=== PATIENT | male | born 1950 ===

== ENCOUNTER → 2020-07-11 08:30 | Outpatient (BNVA) | payer MEDICARE, SELFPAY | PROVIDERS: PCP Internal Medicine; Referring Provider Internal Medicine; Visit Provider Nurse Practitioner | DX: R19.7 Diarrhea, unspecified (principal); R10.84 Generalized abdominal pain; R10.9 Unspecified abdominal pain; K82.4 Cholesterolosis of gallbladder; E13.9 Other specified diabetes mellitus without complications | CPT/HCPCS: 99212 ==

== ENCOUNTER → 2020-08-03 14:15 | Outpatient (BNVA) | payer MEDICARE, SELFPAY | PROVIDERS: PCP Internal Medicine; Visit Provider Urology | DX: N40.1 Benign prostatic hyperplasia with lower urinary tract symptoms (principal); R35.0 Frequency of micturition; Z79.899 Other long term (current) drug therapy | CPT/HCPCS: Q3014 ==

== ENCOUNTER 2020-08-23 08:50 | Outpatient (REF) | payer MEDICARE, SELFPAY ==
[2020-08-23 11:41] LABS: Anion Gap 15 (12-20); Blood Urea Nitrogen 17 mg/dL (9-16); C Reactive Protein 0.09 mg/dL (< or = 0.50); Calcium 9.2 mg/dL (8.4-10.2); Carbon Dioxide 27 mmol/L (22-29); Chloride 105 mmol/L (96-108); Estimated Glomerular Filt Rate > 60; Glucose Random 129 mg/dL (60-115); Potassium 3.7 mmol/l (3.3-5.1); Sodium 143 mmol/L (135-145)
[2020-08-23 11:45] LABS: Estimated Average Glucose 154 mg/dL
[2020-08-23 12:06] LABS: Prostate Specific Antigen 2.79 ng/mL (<0.05-4.0)
[2020-08-23 12:08] LABS: Creatinine Urine 197.78 mg/dL; Microalbum/Creatinine Ratio Ur 12.6 ug/mg cr
[2020-08-24 08:47] LABS: LDL Cholesterol Direct 66 mg/dL (<100)
[2020-08-29 12:15] LABS: CDIFF Ag Negative (Negative); CDIFF Internal ctrl Dots and bkg OK (V); CDiff Toxin Negative (Negative)
== END 2020-08-23 08:51 | disposition home or self-care (01) ==
LOC: HO.HMGCLDS 08:50
PROVIDERS: PCP Internal Medicine; Visit Provider Nurse Practitioner
DX: R10.9 Unspecified abdominal pain (principal); R19.7 Diarrhea, unspecified; K82.4 Cholesterolosis of gallbladder; E78.9 Disorder of lipoprotein metabolism, unspecified; E13.9 Other specified diabetes mellitus without complications; N40.0 Benign prostatic hyperplasia without lower urinary tract symptoms; M54.14 Radiculopathy, thoracic region; I10 Essential (primary) hypertension
CPT/HCPCS: 80048; 82043; 83036; 83721; 84153; 86140; 87045; 87046; 87324; 87449

== ENCOUNTER 2020-12-14 11:21 | Outpatient (REF) | payer MEDICARE, SELFPAY ==
[2020-12-14 13:56] LABS: Hematocrit 47.3 % (42-52); Hemoglobin 15.6 g/dl (14.0-18.0)
[2020-12-14 14:04] LABS: Estimated Average Glucose 177 mg/dL; Hemoglobin A1c % 7.8 %
[2020-12-14 14:48] LABS: Alanine Aminotransferase 66 U/L (0-40); Albumin Level 4.6 g/dL (3.5-5.0); Alkaline Phosphatase 118 U/L (39-117); Anion Gap 15 (12-20); Aspartate Amino Transferase 35 U/L (5-37); Bilirubin Total 0.5 mg/dL (0.0-1.0); Blood Urea Nitrogen 21 mg/dL (9-16); Calcium 9.5 mg/dL (8.4-10.2); Carbon Dioxide 26 mmol/L (22-29); Chloride 102 mmol/L (96-108); Estimated Glomerular Filt Rate > 60; Glucose Random 162 mg/dL (60-115); Potassium 3.9 mmol/L (3.3-5.1); Sodium 139 mmol/L (135-145); Total Protein 7.1 g/dL (6.5-8.0)
[2020-12-15 06:16] LABS: LDL Cholesterol Direct 84 mg/dL (<100)
== END 2020-12-14 11:22 | disposition home or self-care (01) ==
LOC: HO.HMGCLDS 11:21
PROVIDERS: PCP Internal Medicine; Visit Provider Internal Medicine
DX: E78.9 Disorder of lipoprotein metabolism, unspecified (principal); E13.9 Other specified diabetes mellitus without complications; F41.1 Generalized anxiety disorder; I10 Essential (primary) hypertension; E66.9 Obesity, unspecified
CPT/HCPCS: 36415; 80053; 82043; 83036; 83721; 85014; 85018

== ENCOUNTER → 2021-02-14 13:12 | Outpatient (BNVA) | payer MEDICARE, SELFPAY | PROVIDERS: Referring Provider Internal Medicine; Visit Provider Nurse Practitioner | DX: R10.84 Generalized abdominal pain (principal); K80.20 Calculus of gallbladder without cholecystitis without obstruction; K58.9 Irritable bowel syndrome, unspecified; E78.00 Pure hypercholesterolemia, unspecified | CPT/HCPCS: 99212 ==

== ENCOUNTER → 2021-04-11 06:15 | Outpatient (REF) | payer MEDICARE, OTHER, SELFPAY ==
--- NOTE | ~2021-04-11 | NM_ITS ---
EXAMINATION: OR HEPATOBILIARY SCAN WITH ENSURE CLINICAL INFORMATION: Generalized abdominal pain. History of gallstones, abdominal pain and diarrhea. COMPARISON: None TECHNIQUE: Following intravenous administration of 5 mCi of 99m technetium mebrofenin, imaging over the right upper quadrant was obtained up to 60 minutes. At 60 minutes, oral Ensure was administered, and further imaging was obtained up to 60 minutes. FINDINGS: There is normal hepatic uptake without any focal defects. The gallbladder is visualized by 10 minutes, and small bowel is visualized by 52 minutes. Post oral administration of Ensure, the gallbladder ejection fraction at 20 minutes is 33% and at 60 minutes is 60%. It is abnormal. OR/OR hepatobiliary wo pharm IMPRESSION: Patent cystic duct. Patent CBD. Normal hepatic uptake. Abnormal gallbladder ejection fraction 59% at 60 minutes.
== END ==
LOC: HO.NUCMED 06:15
PROVIDERS: PCP Internal Medicine; Visit Provider Nurse Practitioner
DX: R10.84 Generalized abdominal pain (principal); K80.20 Calculus of gallbladder without cholecystitis without obstruction
CPT/HCPCS: 78226; A9537

== ENCOUNTER → 2021-04-16 08:28 | Outpatient (BNVA) | payer MEDICARE, OTHER, SELFPAY | PROVIDERS: PCP Internal Medicine; Visit Provider Nurse Practitioner | DX: K58.0 Irritable bowel syndrome with diarrhea (principal); K82.8 Other specified diseases of gallbladder; M54.14 Radiculopathy, thoracic region | CPT/HCPCS: 99212 ==

== ENCOUNTER → 2021-06-06 08:44 | Outpatient (BNVA) | payer MEDICARE, OTHER, SELFPAY | PROVIDERS: PCP Internal Medicine; Visit Provider Nurse Practitioner | CPT/HCPCS: Q3014 ==

== ENCOUNTER → 2021-07-09 09:02 | Outpatient (BNVA) | payer MEDICARE, OTHER, SELFPAY | PROVIDERS: PCP Internal Medicine; Visit Provider Nurse Practitioner | DX: K82.8 Other specified diseases of gallbladder (principal); K58.0 Irritable bowel syndrome with diarrhea; R19.7 Diarrhea, unspecified | CPT/HCPCS: Q3014 ==

== ENCOUNTER 2021-07-31 07:40 | Outpatient (REF) | payer MEDICARE, SELFPAY ==
[2021-07-31 12:11] LABS: Prostate Specific Antigen 3.19 ng/mL (<0.05-4.0)
== END 2021-07-31 07:41 | disposition home or self-care (01) ==
LOC: HO.HMGCLDS 07:40
PROVIDERS: PCP Internal Medicine; Visit Provider Urology
DX: Z12.5 Encounter for screening for malignant neoplasm of prostate (principal); R35.0 Frequency of micturition
CPT/HCPCS: 36415; 84153

== ENCOUNTER → 2021-08-07 13:10 | Outpatient (BNVA) | payer MEDICARE, SELFPAY | PROVIDERS: PCP Internal Medicine; Referring Provider Internal Medicine; Visit Provider Urology | DX: Z13.89 Encounter for screening for other disorder (principal) | CPT/HCPCS: Q3014 ==

== ENCOUNTER 2021-12-24 09:33 | Outpatient (REF) | payer MEDICARE, SELFPAY ==
[2021-12-24 11:27] LABS: MANUAL DIFF FLAG NO
[2021-12-24 11:38] LABS: Basophils Percent Auto 0.5 % (0-2); Eosinophils Absolute Auto 0.1 X10*3/uL (0.0-0.4); Eosinophils Percent Auto 1.7 % (0-4); Hematocrit 46.2 % (42.0-52.0); Hemoglobin 15.2 g/dl (14.0-18.0); Imm Gran Abs Auto 0.06 X10*3/uL (0.00-0.03); Lymphocytes Absolute Auto 1.7 X10*3/uL (1.2-4.9); Lymphocytes Percent Auto 29.6 % (20-40); Mean Corpuscular HGB Conc 32.9 g/dl (31.0-36.0); Mean Corpuscular Hemoglobin 29.3 pg (27.0-33.0); Mean Corpuscular Volume 89.2 fL (80.0-98.0); Monocytes Absolute Auto 0.5 X10*3/uL (0.1-1.2); Monocytes Percent Auto 8.9 % (2-11); Neutrophils Absolute Auto 3.4 x10*3/uL (2.0-8.3); Neutrophils Percent Auto 58.3 % (45-73); Platelet Count 154 X10*3/uL (160-400); Red Blood Count 5.18 X10*6/uL (4.60-5.80); Red Cell Distribution Width 13.1 % (11.0-16.0); White Blood Count 5.8 X10*3/uL (4.8-10.8)
[2021-12-24 11:43] LABS: Estimated Average Glucose 189 mg/dL; Hemoglobin A1c % 8.2 %
[2021-12-24 12:09] LABS: Alanine Aminotransferase 65 U/L (0-40); Albumin Level 4.3 g/dL (3.5-5.0); Alkaline Phosphatase 85 U/L (39-117); Anion Gap 14 (12-20); Aspartate Amino Transferase 53 U/L (5-37); Blood Urea Nitrogen 14 mg/dL (9-16); Calcium 9.4 mg/dL (8.4-10.2); Carbon Dioxide 26 mmol/L (22-29); Chloride 106 mmol/L (96-108); Cholesterol 165 mg/dL; Estimated Glomerular Filt Rate > 60; Glucose Fasting 164 mg/dL (60-99); HDL Cholesterol 40 mg/dL; LDL Cholesterol Calculated 80 mg/dl; Potassium 3.8 mmol/L (3.3-5.1); Sodium 142 mmol/L (135-145); Total Protein 6.8 g/dL (6.5-8.0); Triglycerides 226 mg/dL
[2021-12-24 12:26] LABS: Microalbum/Creatinine Ratio Ur 7.9 ug/mg cr
== END 2021-12-24 09:34 | disposition home or self-care (01) ==
LOC: HO.HMGCLDS 09:33
PROVIDERS: Visit Provider Internal Medicine
DX: E78.9 Disorder of lipoprotein metabolism, unspecified (principal); F41.1 Generalized anxiety disorder; I10 Essential (primary) hypertension; N40.0 Benign prostatic hyperplasia without lower urinary tract symptoms; E66.09 Other obesity due to excess calories; K58.0 Irritable bowel syndrome with diarrhea; E13.9 Other specified diabetes mellitus without complications
CPT/HCPCS: 36415; 80053; 80061; 82043; 83036; 85025

== ENCOUNTER 2022-07-02 13:01 | Outpatient (REF) | payer MEDICARE, SELFPAY ==
--- NOTE | ~2022-07-02 | XR_ITS ---
EXAMINATION: XR KNEE, RIGHT CLINICAL INFORMATION: Right knee pain COMPARISON: None TECHNIQUE: Four views of the right knee. FINDINGS: There is a right knee effusion. No acute fracture or dislocation is evident. There is degenerative change of the patellofemoral joint with prominent spurring. There is moderate narrowing of the lateral joint space compartment of the right knee. There is evidence of previous old medial collateral ligament injury with calcification about the medial femoral condyle. Nondestructive sclerotic region is seen within the proximal tibia likely representing bone island. XR/XR knee RT 4V IMPRESSION: 1. Right knee effusion. 2. Patellofemoral joint degenerative change. 3. Moderate narrowing of the lateral joint space compartment of the right knee
[2022-07-02 13:51] LABS: MANUAL DIFF FLAG NO
[2022-07-02 13:56] LABS: Basophils Percent Auto 0.4 % (0-2); Eosinophils Absolute Auto 0.1 X10*3/uL (0.0-0.4); Hematocrit 44.9 % (42.0-52.0); Hemoglobin 14.9 g/dl (14.0-18.0); Imm Gran Abs Auto 0.03 X10*3/uL (0.00-0.03); Imm Gran Pct Auto 0.6 % (0.0-0.4); Lymphocytes Absolute Auto 1.5 X10*3/uL (1.2-4.9); Lymphocytes Percent Auto 31.1 % (20-40); Mean Corpuscular HGB Conc 33.2 g/dl (31.0-36.0); Mean Corpuscular Hemoglobin 29.2 pg (27.0-33.0); Mean Platelet Volume 12.8 fL (9.4-12.4); Monocytes Absolute Auto 0.4 X10*3/uL (0.1-1.2); Monocytes Percent Auto 7.3 % (2-11); Neutrophils Absolute Auto 2.9 x10*3/uL (2.0-8.3); Neutrophils Percent Auto 59.6 % (45-73); Platelet Count 148 X10*3/uL (160-400); Red Cell Distribution Width 13.2 % (11.0-16.0); White Blood Count 4.8 X10*3/uL (4.8-10.8)
[2022-07-02 14:07] LABS: Alanine Aminotransferase 45 U/L (0-40); Albumin Level 4.3 g/dL (3.5-5.0); Alkaline Phosphatase 84 U/L (39-117); Anion Gap 15 (12-20); Aspartate Amino Transferase 36 U/L (5-37); Bilirubin Total 1.2 mg/dL (0.0-1.0); Blood Urea Nitrogen 15 mg/dL (9-16); Calcium 9.6 mg/dL (8.4-10.2); Carbon Dioxide 27 mmol/L (22-29); Chloride 104 mmol/L (96-108); Estimated Glomerular Filt Rate > 60; Glucose Random 204 mg/dL (60-115); Potassium 3.9 mmol/L (3.3-5.1); Sodium 142 mmol/L (135-145); Total Protein 6.8 g/dL (6.5-8.0)
[2022-07-02 14:30] LABS: TSH reflex Free T4 1.55 uIU/mL (0.32-4.0)
== END 2022-07-02 13:02 | disposition home or self-care (01) ==
LOC: HO.HMGCLDS 13:01
PROVIDERS: PCP Internal Medicine; Visit Provider Internal Medicine
DX: Z01.818 Encounter for other preprocedural examination (principal); E13.9 Other specified diabetes mellitus without complications; I10 Essential (primary) hypertension; E66.09 Other obesity due to excess calories; E78.9 Disorder of lipoprotein metabolism, unspecified; H26.9 Unspecified cataract
CPT/HCPCS: 36415; 73564; 80053; 84443; 85025

== ENCOUNTER 2023-06-02 07:52 | Outpatient (REF) | payer BC, SELFPAY ==
[2023-06-02 11:35] LABS: MANUAL DIFF FLAG NO
[2023-06-02 11:48] LABS: Basophils Percent Auto 0.3 % (0-2); Eosinophils Absolute Auto 0.1 X10*3/uL (0.0-0.4); Eosinophils Percent Auto 1.9 % (0-4); Hematocrit 48.3 % (42.0-52.0); Hemoglobin 15.7 g/dl (14.0-18.0); Imm Gran Abs Auto 0.04 X10*3/uL (0.00-0.03); Imm Gran Pct Auto 0.7 % (0.0-0.4); Lymphocytes Absolute Auto 2.1 X10*3/uL (1.2-4.9); Lymphocytes Percent Auto 35.6 % (20-40); Mean Corpuscular HGB Conc 32.5 g/dl (31.0-36.0); Mean Corpuscular Hemoglobin 29.4 pg (27.0-33.0); Mean Corpuscular Volume 90.4 fL (80.0-98.0); Mean Platelet Volume 12.8 fL (9.4-12.4); Monocytes Absolute Auto 0.5 X10*3/uL (0.1-1.2); Monocytes Percent Auto 8.3 % (2-11); Neutrophils Absolute Auto 3.1 x10*3/uL (2.0-8.3); Neutrophils Percent Auto 53.2 % (45-73); Platelet Count 157 X10*3/uL (160-400); Red Blood Count 5.34 X10*6/uL (4.60-5.80); Red Cell Distribution Width 13.6 % (11.0-16.0); White Blood Count 5.8 X10*3/uL (4.8-10.8)
[2023-06-02 12:11] LABS: Estimated Average Glucose 151 mg/dL; Hemoglobin A1c % 6.9 % (<6.0)
[2023-06-02 12:26] LABS: Alanine Aminotransferase 33 U/L (0-40); Albumin Level 4.3 g/dL (3.5-5.0); Alkaline Phosphatase 86 U/L (39-117); Anion Gap 12 (12-20); Aspartate Amino Transferase 23 U/L (5-37); Blood Urea Nitrogen 16 mg/dL (9-16); Calcium 9.5 mg/dL (8.4-10.2); Carbon Dioxide 26 mmol/L (22-29); Chloride 107 mmol/L (96-108); Estimated Glomerular Filt Rate > 60; Glucose Fasting 151 mg/dL (60-99); Potassium 3.7 mmol/L (3.3-5.1); Sodium 141 mmol/L (135-145); Total Protein 6.9 g/dL (6.5-8.0)
[2023-06-02 13:03] LABS: Creatinine Urine 347.89 mg/dL; Microalbum/Creatinine Ratio Ur 5.1 ug/mg cr (<30)
[2023-06-02 16:28] LABS: Prostate Specific Antigen 2.48 ng/mL (<0.05-4.0); Vitamin B12 596 pg/mL (200-900)
[2023-06-06 15:03] LABS: Vitamin D 25-OH, D2 <4 ng/mL; Vitamin D 25-OH, D3 13 ng/mL; Vitamin D 25-OH, Total 13 ng/mL (30-100)
== END 2023-06-02 07:53 | disposition home or self-care (01) ==
LOC: HO.HMGCLDS 07:52
PROVIDERS: PCP Internal Medicine; Visit Provider Internal Medicine
DX: Z00.01 Encounter for general adult medical examination with abnormal findings (principal); Z12.5 Encounter for screening for malignant neoplasm of prostate; M19.90 Unspecified osteoarthritis, unspecified site; E66.09 Other obesity due to excess calories; E78.9 Disorder of lipoprotein metabolism, unspecified; N40.0 Benign prostatic hyperplasia without lower urinary tract symptoms; E13.9 Other specified diabetes mellitus without complications; F41.9 Anxiety disorder, unspecified
CPT/HCPCS: 36415; 80053; 82043; 82306; 82570; 82607; 83036; 84153; 84443; 85025

== ENCOUNTER 2023-06-12 13:08 | Outpatient (AMB) | payer BC, SELFPAY ==
--- NOTE | 2023-06-12 13:10 | MHC.PC.OV ---
Vital Signs 06/12/23 13:13 Height 5 ft 2 in Weight 200 lb BMI 36.6 BP 120/80 Blood Pressure Location Rt brachial Position Sitting Pulse 52 Pulse Source Pulse Oximeter Pulse Oximetry (%) 97 Oxygen Delivery Method Room Air Intake Visit Reasons: 3 month Follow up Allergies oxycodone Adverse Reaction (Verified 03/13/23 14:44) panic attack Medication List - Last Reconciled 06/12/23 by Emily Yoder MD aspirin (Adult Low Dose Aspirin) 81 mg PO DAILY 90 days atenolol 25 mg PO DAILY 90 days atorvastatin 10 mg PO DAILY blood sugar diagnostic ([employer] Ultra Test strips) test blood sugars twice a day blood-glucose meter ([employer] Ultra2 Meter) As directed to test blood sugar cholecalciferol (vitamin D3) 25 mcg PO DAILY 90 days clotrimazole-betamethasone 1-0.05 % 1 appl topical BID 30 days diclofenac sodium 75 mg PO ONCE 30 days finasteride 5 mg PO DAILY 90 days glipizide 10 mg (2 x 5 mg) PO BID 90 days lancets ([employer]ZER[employer]uch Delica Plus Lancet) test blood sugars twice a day magnesium citrate 100 mg PO DAILY pioglitazone 45 mg PO DAILY 90 days silodosin 8 mg PO DAILY tamsulosin 0.4 mg PO DAILY Tobacco use date assessed: 03/13/23 HPI 3 month Follow up HPI Details Patient is 73-year-old gentleman came in today for his regular follow-up appointment Continued to feel anxiety he has tried buspirone but felt drowsy so stopped taking it. I prescribed Lexapro for him but he did not take it, patient says that he only feel anxiety when he look at needles Patient has appointment for colonoscopy consultation coming up next month. Blood pressure is well controlled , he is on atenolol 25 mg patient is tolerating medication no side effects Diabetes mellitus continue glipizide 10 mg b.i.d. pioglitazone 45 mg daily hemoglobin A1c is well controlled now at 6.9 He had eye exam and that showed no diabetic complications He is taking atorvastatin 10 mg for lipid control And tamsulosin and finasteride for BPH through urology BMI is elevated need to lose weight Vitamin-D level came back at 13, I have sent supplement for him he is to start taking that daily Thrombocytopenia: Mild and stable Follow-up [facility] Medical History Hyperlipidemia Diabetes mellitus, type II BPH (benign prostatic hyperplasia) HTN (hypertension) Dyslipidemia Bladder outlet obstruction Dribbling following urination Nocturia Rash Lipid disorder Benign prostatic hyperplasia Diabetes 1.5, managed as type 2 Anxiety, generalized Surgical History History of colonoscopy Family History Father History of cancer Mother History of cancer Social History Housing: House Alcohol intake: current Alcohol intake frequency: holidays/special occasions only Patient Tobacco Use Status: Former Tobacco user Quit Date: 2010 Tobacco use type: Cigarette e-Cigarette/Vaping Use: Never Used service: No Current occupational status: retired Cognitive needs: No Hearing needs: No Vision needs: No Questionnaire Thrive Questionnaire Date Thrive assessed: 11/04/22 JOSIE-7 AMB Questionnaire JOSIE-7 Date JOSIE - 7 assessed: 11/04/22 Source: Developed by Drs. Tien Simons, Marycruz Morales, Moustapha Tony and colleagues, with an educational tye from [employer]. Review of Systems Const Denies chills and Denies fever(s) ENT Denies epistaxis and Denies nasal discharge Card Denies chest pain Resp Denies chest congestion, Denies cough and Denies hemoptysis GI Denies diarrhea and Denies nausea Skin/Breast Denies rash Neuro Reports no additional complaints Psych Reports no additional complaints Endo Reports no additional complaints Physical exam (Primary Care) Vital Signs: Last Vital Signs Pulse 52 06/12/23 13:13 BP 120/80 06/12/23 13:13 Pulse Ox 97 06/12/23 13:13 Oxygen Delivery Method Room Air 06/12/23 13:13 Tobacco/Smoking Status: Tobacco use Status Tobacco use date assessed 03/13/23 06/12/23 13:10 Patient Tobacco Use Status Former Tobacco user 06/12/23 13:10 Tobacco use type Cigarette 06/12/23 13:10 e-Cigarette/Vaping Use Never Used 06/12/23 13:10 Thrive Assessment: Date of Thrive Assessment Date Thrive assessed 11/04/22 06/12/23 13:10 Const General: cooperative, comfortable and no acute distress Orientation/consciousness: patient oriented x3 HENMT Head: Yes normocephalic Eyes General: appearance normal, both eyes and all related structures Neck Neck: Yes supple Resp Effort & Inspection: normal respiratory effort, no cough and no stridor Cardio Rhythm: regular rhythm Heart sounds: S1 normal heart sound present and S2 normal heart sound present Skin General skin exam: turgor normal Neuro General: patient oriented x3, tone normal and moves all extremities Extrem Right lower extremity: no edema Left lower extremity: no edema Assessment and Plan Assessment & Plan (1) Diabetes 1.5, managed as type 2: Code(s): E13.9 - Other specified diabetes mellitus without complications (2) Benign prostatic hyperplasia: Code(s): N40.0 - Benign prostatic hyperplasia without lower urinary tract symptoms Qualifiers: Lower urinary tract symptom presence: symptoms present Lower urinary tract symptom detail: urinary frequency Qualified Code(s): N40.1 - Benign prostatic hyperplasia with lower urinary tract symptoms; R35.0 - Frequency of micturition (3) Lipid disorder: Code(s): E78.9 - Disorder of lipoprotein metabolism, unspecified (4) Obesity due to excess calories: Code(s): E66.09 - Other obesity due to excess calories Qualifiers: Obesity classification: adult class 2 (BMI 35 - 39.9) Serious obesity comorbidity presence: with serious comorbidity Body mass index: BMI 36.0-36.9 Qualified Code(s): E66.01 - Morbid (severe) obesity due to excess calories; Z68.36 - Body mass index [BMI] 36.0-36.9, adult (5) Anxiety disorder: Code(s): F41.9 - Anxiety disorder, unspecified Qualifiers: Anxiety disorder type: phobia Phobia type: fear of injections Qualified Code(s): F40.231 - Fear of injections and transfusions (6) Arthrosis: Code(s): M19.90 - Unspecified osteoarthritis, unspecified site (7) HTN (hypertension), benign: Code(s): I10 - Essential (primary) hypertension (8) Anxiety, generalized: Code(s): F41.1 - Generalized anxiety disorder (9) Thrombocytopenia: Code(s): D69.6 - Thrombocytopenia, unspecified (10) Thoracic radiculitis: Code(s): M54.14 - Radiculopathy, thoracic region Plan Patient is 73-year-old gentleman came in today for his regular follow-up appointment Continued to feel anxiety he has tried buspirone but felt drowsy so stopped taking it. I prescribed Lexapro for him but he did not take it, patient says that he only feel anxiety when he look at needles Patient has appointment for colonoscopy consultation coming up next month. Blood pressure is well controlled , he is on atenolol 25 mg patient is tolerating medication no side effects Diabetes mellitus continue glipizide 10 mg b.i.d. pioglitazone 45 mg daily hemoglobin A1c is well controlled now at 6.9 He had eye exam and that showed no diabetic complications He is taking atorvastatin 10 mg for lipid control And tamsulosin and finasteride for BPH through urology Joint pains are stable patient is taking Tylenol as needed BMI is elevated need to lose weight Vitamin-D level came back at 13, I have sent supplement for him he is to start taking that daily Thrombocytopenia: Mild and stable Continued to have pain mid back radiating to right side to worse abdomen. Off and on. Follow-up August Medications: New cholecalciferol (vitamin D3) 25 mcg PO DAILY 90 days 90 caps 3RF Coding Level of Care Code Est Pt Level 4 (21223) Diagnoses Diabetes 1.5, managed as type 2 E13.9 Benign prostatic hyperplasia with urinary frequency N40.1; R35.0 Lower urinary tract symptom presence: symptoms present Lower urinary tract symptom detail: urinary frequency Lipid disorder E78.9 Class 2 severe obesity due to excess calories with serious comorbidity and body mass index (BMI) of 36.0 to 36.9 in adult E66.01; Z68.36 Obesity classification: adult class 2 (BMI 35 - 39.9) Serious obesity comorbidity presence: with serious comorbidity Body mass index: BMI 36.0-36.9 Fear of injections F40.231 Anxiety disorder type: phobia Phobia type: fear of injections Arthrosis M19.90 HTN (hypertension), benign I10 Anxiety, generalized F41.1 Thrombocytopenia D69.6 Thoracic radiculitis M54.14
[2023-06-12 13:13] VITALS: BP 120/80; PULSE 52; O2SAT 97; BMI 36.6
== END 2023-06-12 16:01 | disposition home or self-care (01) ==
PROVIDERS: PCP Internal Medicine; Visit Provider Internal Medicine
DX: E13.9 Other specified diabetes mellitus without complications (principal); E66.01 Morbid (severe) obesity due to excess calories; D69.6 Thrombocytopenia, unspecified; Z68.36 Body mass index [BMI] 36.0-36.9, adult; N40.1 Benign prostatic hyperplasia with lower urinary tract symptoms; R35.0 Frequency of micturition; E78.9 Disorder of lipoprotein metabolism, unspecified; F40.231 Fear of injections and transfusions; M19.90 Unspecified osteoarthritis, unspecified site; I10 Essential (primary) hypertension; F41.1 Generalized anxiety disorder; M54.14 Radiculopathy, thoracic region
CPT/HCPCS: 99214

== ENCOUNTER 2023-09-01 11:05 | Outpatient (AMB) | payer BC, SELFPAY ==
--- NOTE | 2023-09-01 11:19 | A.OFFVIS_ITS ---
Intake Vital Signs 09/01/23 11:20 Height 5 ft 2 in Weight 202 lb 6.15 oz BMI 37.0 BP 130/70 Blood Pressure Location Rt brachial Position Sitting Pulse 52 Intake Visit Reasons: follow up Biliary dyskinesia Intake Note: Patient presents to in office visit today in follow up of biliary dyskinesia and for colonoscopy screening. CC: Patient c/o RUQ abdominal pain with radiation to his back, pain scale 10/10 when he has it. Patient reports last colonoscopy was done in 2015 in [place] and polyps were removed at that time. Patient would like to discuss when he will have a new colonoscopy done. Patient reports constantly having diarrhea and constipation but mostly diarrhea. He also reports having nausea sometimes and heartburn. Sorority Mother Required: Yes Sorority Mother Name: Accompanied by: Allergies oxycodone Adverse Reaction (Verified 09/01/23 11:25) panic attack HPI follow up Biliary dyskinesia HPI Details Assessment & Plan (1) Irritable bowel syndrome with diarrh ea: ?Code(s): K58.0 - Irritable bowel syndrome with diarrhea ?Plan: [place] # [id number], Sara He never received the zenpep, he says he called to inform me but I never received the message. I think this may be a PA problem, so I will have my staff work on this. [employer] is difficult with their formulary at times. He continues on the sucralfate 2 tabs bid and still has diarrhea at times but not as much. He is only taking the dicylcomine bid because there are so many pills. We may need to consider an IBS-D medication to simplify his pill burden at the next visit. ROV 4 weeks. (2) Biliary dyskinesia: ?Code(s): K82.8 - Other specified diseases of gallbladder (3) Diarrhea: ?Code(s): R19.7 - Diarrhea, unspecified TODAY'S VISIT [place] #Rosy Live This patient has been lost to follow-up since 2020 He is here with his who is supportive He says he was not notified about his appts and that is why he has not showed up for his appts. He has RUQ pain that is worse when he moves and then I will have to freeze. He has trouble finding a position of comfort in the bed. It is worse with twisting and bending. The pain is not effected by eating in general or with fatty foods specifically - although he generally avoids fatty foods. The pain has been worsening over the past year. He has had some new medicines, pioglitizone and glipizide, finasteride and flomax. His BM's are mostly diarrhea and he will have bad burning in rectum; he does have hemorrhoids. No blood. We used to treat the diarrhea with sucralfate but he has not had this for a year. We will restart this. It is difficult to say whether this has something to do with his gallbladder or whether this is simply cramping from his now poorly controlled irritable bowel syndrome. It also seems like there may be a significant musculoskeletal overlap. On examination he seems to have significant levoscoliosis so the possibility of thoracic radiculopathy is strongly in the differential diagnosis. I explained all of this to the patient and with this he is agreeable to getting some x-rays of his back and neck, a repeat ultrasound and repeat HIDA scan. He will also restart his sucralfate and will see how much this controls the pain. He also tells me that his last colonoscopy was in 2016 or 2017 at that time a polyp was found. This was done a different facility so I do not have the report. He says that his primary care was supposed to refer him for repeat colonoscopy but then he retired. I will get him going with this. He denies any cardiac or respiratory problems. There are no prior problems with anesthesia or sedation. There are no infectious disease problems. Return office visit in 8 weeks and of course after the colonoscopy. [facility] Medical History Hyperlipidemia Diabetes mellitus, type II BPH (benign prostatic hyperplasia) HTN (hypertension) Dyslipidemia Bladder outlet obstruction Dribbling following urination Nocturia Rash Lipid disorder Benign prostatic hyperplasia Diabetes 1.5, managed as type 2 Anxiety, generalized Surgical History History of colonoscopy Family History Father History of cancer Mother History of cancer Social History Housing: House Alcohol intake: current Alcohol intake frequency: holidays/special occasions only Patient Tobacco Use Status: Former Tobacco user Quit Date: 2010 Tobacco use type: Cigarette e-Cigarette/Vaping Use: Never Used service: No Current occupational status: retired Cognitive needs: No Hearing needs: No Vision needs: No Review of Systems Const Denies fatigue, Denies fever(s), Denies night sweats, Denies poor appetite and Denies weight loss ENT Reports Normal hearing present, Denies dental pain, Denies dysphagia, Denies hearing loss, Denies mouth pain, Reports neck pain, Denies odynophagia, Denies throat swelling, Denies tongue swelling and Reports other (Dentition adequate) Card Reports no additional complaints Resp Reports no additional complaints GI Reports abdominal pain, Denies melena, Denies bloating, Denies hematochezia, Denies constipation, Reports GI cramping, Denies dysphagia, Denies excessive flatus, Denies early satiety, Reports heartburn, Reports diarrhea, Denies nausea, Denies odynophagia, Denies vomiting and Denies hematemesis Musc Reports abnormal gait, Reports back pain, Reports myalgias, Reports arthralgias, Reports neck pain and Reports stiffness Skin/Breast Denies pruritus, Denies lesions, Denies rash and Denies jaundice Neuro Reports Normal hearing present, Denies Abnormal speech present and Reports abnormal gait Psych Details: He is severely needle phobic Reports anxiety Endo Denies fatigue Aller/Immun Denies throat swelling and Denies tongue swelling Physical Exam Vital Signs: Last Vital Signs Pulse 52 09/01/23 11:20 BP 130/70 09/01/23 11:20 BMI result Body Mass Index 37.0 Const General: cooperative, no acute distress, well developed and well groomed Nutritional Appearance: well nourished and obese centrally obese Orientation/consciousness: oriented to person, oriented to place and oriented to time Limitations: language barrier HEENT Head: Yes normocephalic and Yes atraumatic Eyes General: appearance normal, both eyes and all related structures Pupils: Equal, round and reactive pupils present Neck Neck: Yes normal visual inspection and Yes no lymphadenopathy Thyroid: Thyroid normal Resp Effort & Inspection: normal respiratory effort and able to speak in complete sentences Auscultation: clear to auscultation bilaterally Cardio Rate: regular rate Rhythm: regular rhythm Heart sounds: Normal, physiologic split S2 sound present Peripheral pulses: radial pulses present and posterior tibial pulses present GI Inspection: No distended, No Abdominal panniculus present and Yes obesity Palpation (GI): Soft to palpation, Tenderness to palpation present (GI) in the RUQ and periumbilically, no guarding, not rigid and No hepatosplenomegaly present Percussion: Yes normal to percussion Auscultation: normal bowel sounds Rectal Exam - Male: Yes deferred General: Yes CVA tenderness Back/Spine/Pelvis Back: CVA tenderness Thoracic/Lumbar Spine: straight leg raise negative bilaterally, pain with thoraco-lumbar ROM, paraspinal muscle tenderness, Thoracic/lumbar scoliosis (levo), thoracic spinal tenderness and other (increased hamstring tone - extreme) Skin General skin exam: no rashes or lesions noted, turgor normal, skin not dry, no jaundice, No spider nevi and no striae Rashes: no rashes Nails: normal Neuro General: oriented to person, oriented to place and oriented to time Cranial nerves: Yes Equal, round and reactive pupils present and Yes Normal hearing present Speech: No Abnormal speech present Extrem General: Yes normal to inspection, No clubbing, No cyanosis and No edema Psych Appearance: grossly normal and well kempt Mental Status: mental status grossly normal Speech and movement: Normal speech and movement present Affect: Anxious affect present Attitude: cooperative Thought process: not confabulating and Impoverished thought process present Thought content: Normal thought content present Insight: Limited insight present (Psych) Judgement: Limited judgement present (Psych) Assessment & Plan Assessment & Plan (1) Irritable bowel syndrome with diarrhea: Code(s): K58.0 - Irritable bowel syndrome with diarrhea (2) Biliary dyskinesia: Code(s): K82.8 - Other specified diseases of gallbladder (3) Flank pain: Code(s): R10.9 - Unspecified abdominal pain (4) Back pain: Code(s): M54.9 - Dorsalgia, unspecified (5) Tubular adenoma of colon: Code(s): D12.6 - Benign neoplasm of colon, unspecified (6) Pre-op evaluation: Code(s): Z01.818 - Encounter for other preprocedural examination Plan [place] #Rosy Michel This patient has been lost to follow-up since 2020 He is here with his who is supportive He says he was not notified about his appts and that is why he has not showed up for his appts. He has RUQ pain that is worse when he moves and then I will have to freeze. He has trouble finding a position of comfort in the bed. It is worse with twisting and bending. The pain is not effected by eating in general or with fatty foods specifically - although he generally avoids fatty foods. The pain has been worsening over the past year. He has had some new medicines, pioglitizone and glipizide, finasteride and flomax. His BM's are mostly diarrhea and he will have bad burning in rectum; he does have hemorrhoids. No blood. We used to treat the diarrhea with sucralfate but he has not had this for a year. We will restart this. It is difficult to say whether this has something to do with his gallbladder or whether this is simply cramping from his now poorly controlled irritable bowel syndrome. It also seems like there may be a significant musculoskeletal overlap. On examination he seems to have significant levoscoliosis so the possibility of thoracic radiculopathy is strongly in the differential diagnosis. I explained all of this to the patient and with this he is agreeable to getting some x-rays of his back and neck, a repeat ultrasound and repeat HIDA scan. He will also restart his sucralfate and will see how much this controls the pain. He also tells me that his last colonoscopy was in 2016 or 2017 at that time a polyp was found. This was done a different facility so I do not have the report. He says that his primary care was supposed to refer him for repeat colonoscopy but then he retired. I will get him going with this. He denies any cardiac or respiratory problems. There are no prior problems with anesthesia or sedation. There are no infectious disease problems. Return office visit in 8 weeks and of course after the colonoscopy. Orders: Orders US abdomen complete Today K58.0 - Irritable bowel syndrome with diarrhea, K82.8 - Other specified diseases of gallbladder, M54.9 - Dorsalgia, unspecified, R10.9 - Unspecified abdominal pain XR thoracic spine 2V Today K58.0 - Irritable bowel syndrome with diarrhea, K82.8 - Other specified diseases of gallbladder, M54.9 - Dorsalgia, unspecified, R10.9 - Unspecified abdominal pain NM hepatobiliary w pharm Today K58.0 - Irritable bowel syndrome with diarrhea, K82.8 - Other specified diseases of gallbladder, M54.9 - Dorsalgia, unspecified, R10.9 - Unspecified abdominal pain UA CC w/rflx Micro + Cult Today K58.0 - Irritable bowel syndrome with diarrhea, K82.8 - Other specified diseases of gallbladder, M54.9 - Dorsalgia, unspecified, R10.9 - Unspecified abdominal pain Colonoscopy - GI Use Only Today D12.6 - Benign neoplasm of colon, unspecified Medications: New sodium,potassium,mag sulfates 17.5-3.13-1.6 gram (Suprep Bowel Prep Kit) 480 mL orally; 354 mL 0RF D12.6 - Benign neoplasm of colon, unspecified, Z01.818 - Encounter for other preprocedural examination sucralfate (Carafate) 2 grams (2 x 1 gram) PO BEDTIME 60 tabs 6RF K58.0 - Irritable bowel syndrome with diarrhea Coding Level of Care Code Est Pt Level 4 (92339) Diagnoses Irritable bowel syndrome with diarrhea K58.0 Biliary dyskinesia K82.8 Flank pain R10.9 Back pain M54.9 Tubular adenoma of colon D12.6 Pre-op evaluation Z01.818
[2023-09-01 11:20] VITALS: BP 130/70; PULSE 52; BMI 37.0
== END 2023-09-01 12:11 | disposition home or self-care (01) ==
PROVIDERS: PCP Internal Medicine; Visit Provider Nurse Practitioner
DX: K58.0 Irritable bowel syndrome with diarrhea (principal); K82.8 Other specified diseases of gallbladder; R10.9 Unspecified abdominal pain; M54.9 Dorsalgia, unspecified; D12.6 Benign neoplasm of colon, unspecified; Z01.818 Encounter for other preprocedural examination
CPT/HCPCS: 99214

== ENCOUNTER → 2023-09-01 11:05 | Outpatient (BNVA) | payer BC, SELFPAY | PROVIDERS: PCP Internal Medicine; Visit Provider Nurse Practitioner ==

== ENCOUNTER 2023-09-22 08:18 | Outpatient (REF) | payer BC, SELFPAY ==
--- NOTE | ~2023-09-22 | XR_ITS ---
EXAMINATION: XR THORACOLUMBAR SPINE CLINICAL INFORMATION: Irritable bowel syndrome with diarrhea. COMPARISON: Thoracic spine radiographs dated 05/18/2020. TECHNIQUE: AP, lateral and swimmer's views of the thoracic spine are submitted. FINDINGS: Vertebral body heights are normal. There is a mild lower thoracic levoscoliosis. The thoracic disc spaces are relatively well-maintained. No acute fracture or spondylolisthesis is seen. There is multi-level moderate to marked thoracic spondylosis, most pronounced at T9-T10 and T10-T11. The posterior elements are intact. The paravertebral soft tissues are unremarkable. XR/XR thoracic spine 2V IMPRESSION: 1. No acute fracture or spondylolisthesis is seen. 2. The thoracic disc spaces are relatively well-maintained. 3. There is multi-level moderately severe thoracic spondylosis. 4. There is a mild lower thoracic levoscoliosis.
[2023-09-22 09:21] LABS: Appearance Urine Clear; Color Urine Yellow; Glucose Urine UA >=1000 mg/dL (Negative); Leukocyte Esterase Urine Negative (Negative); Nitrite Urine Negative (Negative); PH 5.5 (5.0-9.0); Specific Gravity - Urine >= 1.030 (1.005-1.025); UMIC TRIGGER UACC YES; Urine Blood Negative (Negative); Urine Ketones Trace mg/dL (Negative); Urine Protein Negative (Neg-Trace)
[2023-09-22 09:28] LABS: Bacteria Urine None Seen (None Seen); Hyaline Casts Urine 0-2 /LPF (0-2); RBC Urine 0-2 /HPF (0-2); Squamous Epithelial Cell Urine 0-2 /HPF (0-2); WBC Urine 0-5 /HPF (0-5)
== END 2023-09-22 08:19 | disposition home or self-care (01) ==
LOC: HO.LAB 08:18
PROVIDERS: Visit Provider Nurse Practitioner
DX: R10.9 Unspecified abdominal pain (principal); K58.0 Irritable bowel syndrome with diarrhea; K82.8 Other specified diseases of gallbladder; M54.9 Dorsalgia, unspecified
CPT/HCPCS: 72070; 81001

== ENCOUNTER 2023-10-02 10:04 | Outpatient (AMB) | payer BC, SELFPAY ==
--- NOTE | 2023-10-02 10:10 | A.OFFPC_ITS ---
Vital Signs 3 10/02/23 10:11 Height 5 ft 2 in Weight 198 lb BMI 36.2 BP 128/70 Blood Pressure Location Rt brachial Position Sitting Pulse 60 Pulse Source Pulse Oximeter Pulse Oximetry (%) 97 Oxygen Delivery Method Room Air Intake Visit Reasons: 6 month follow up ( rescheduled) Meds Conveyor Technician Required: No Accompanied by: Spouse Allergies oxycodone Adverse Reaction (Verified 10/02/23 10:13) panic attack Medication List - Last Reconciled 10/02/23 by Emily Yoder MD aspirin (Adult Low Dose Aspirin) 81 mg PO DAILY 90 days atenolol 25 mg PO DAILY 90 days atorvastatin 10 mg PO DAILY blood sugar diagnostic ([employer]ile Ultra Test strips) test blood sugars twice a day blood-glucose meter (Automile Ultra2 Meter) As directed to test blood sugar cholecalciferol (vitamin D3) 25 mcg PO DAILY 90 days clotrimazole-betamethasone 1-0.05 % 1 appl topical BID 30 days glipizide 10 mg (2 x 5 mg) PO BID 90 days lancets ([employer] Delica Plus Lancet) test blood sugars twice a day magnesium citrate 100 mg PO DAILY multivitamin 1 tab PO DAILY pioglitazone 45 mg PO DAILY 90 days sucralfate (Carafate) 2 grams (2 x 1 gram) PO BEDTIME tamsulosin 0.4 mg PO DAILY Tobacco use date assessed: 10/02/23 Fall risk assessment: No Falls in past year Last assessed Fall Risk: 10/02/23 Dental Screening Dental Screen Date: 10/02/23 Did you have a dental visit in the last 12 months?: Yes Did you have a dental problem in the last 6 months where you did not have access to dental care?: No Was dental information given to patient?: Patient has dentist HPI 6 month follow up ( rescheduled) Meds 2 HPI0 Details Patient is 73-year-old gentleman came in today for his regular follow- up appointment Colonoscopy appointment is coming up in December Patient is complaining of itching left nipple with some discomfort He has also developed a rash on the tip of his nose which comes and goes I have sent steroid cream that he may use around the nipple and nose and see if that resolves the problem otherwise he is to get back to me Continued to feel anxiety he has tried buspirone but felt drowsy so stopped taking it. I prescribed Lexapro for him but he did not take it, patient says that he only feel anxiety when he look at needles Blood pressure is well controlled , he is on atenolol 25 mg patient is tolerating medication no side effects Diabetes mellitus continue glipizide 10 mg b.i.d. pioglitazone 45 mg daily hemoglobin A1c is well controlled He had eye exam and that showed no diabetic complications He is taking atorvastatin 10 mg for lipid control And tamsulosin and finasteride for BPH through urology Joint pains are stable patient is taking Tylenol as needed BMI is elevated need to lose weight Vitamin-D supplement Thrombocytopenia: Mild and stable Continued to have pain mid back radiating to right side to worse abdomen. Has been evaluated by back specialist and was told that he has scoliosis Workup and management is still in progress Telemedicine 2 weeks for left nipple pain itching Follow-up 3 months [facility] Medical History Hyperlipidemia Diabetes mellitus, type II BPH (benign prostatic hyperplasia) HTN (hypertension) Dyslipidemia Bladder outlet obstruction Dribbling following urination Nocturia Rash Lipid disorder Benign prostatic hyperplasia Diabetes 1.5, managed as type 2 Anxiety, generalized Surgical History History of colonoscopy Family History Father History of cancer Mother History of cancer Social History Housing: House Alcohol intake: current Alcohol intake frequency: holidays/special occasions only Patient Tobacco Use Status: Former Tobacco user Quit Date: 2010 Tobacco use type: Cigarette e-Cigarette/Vaping Use: Never Used service: No Current occupational status: retired Cognitive needs: No Hearing needs: No Vision needs: No Questionnaire PHQ-9 Over the last 2 weeks, how often have you been bothered by any of the following problems? 1. Little interest or pleasure in doing things: several days 2. Feeling down, depressed, or hopeless: several days 3. Trouble falling or staying asleep, or sleeping too much: several days 4. Feeling tired or having little energy: several days 5. Poor appetite or overeating: several days 6. Feeling bad about yourself - or that you are a failure or have let yourself or your family down: several days 7. Trouble concentrating on things, such as reading the newspaper or watching television: several days 8. Moving or speaking so slowly that other people could have noticed. Or the opposite - being so fidgety or restless that you have been moving around a lot more than usual: several days 9. Thoughts that you would be better off or of hurting yourself in some way: several days Total score: 9 Depression Screening Interpretation: Negative Depression Screening Done: Yes 06584 - PHQ-9 Billing: Yes Source: Developed by Drs. Tien Simons, Marycruz Morales, Moustapha Tony and colleagues, with an educational tye from [employer]. Thrive Questionnaire Date Thrive assessed: 10/02/23 I am a: Patient What is your living situation today?: I have a steady place to live Within the past 12 months, did the food you bought not last and you didn't have the money to get more?: Never true Within the past 12 months, did you worry whether your food would run out before you got money to buy more?: Never true Do you have trouble paying for medicines?: No Do you have trouble getting transportation to medical appointments?: No Do you have trouble paying your heating and electricity bill?: No Do you have trouble taking care of your child, family member or friend?: No Do you have trouble with day-to-day activities such as bathing, preparing meals, shopping, managing finances, etc.?: No Are you currently unemployed and looking for a job?: No Are you interested in more education?: No Please select the resources that you would like help with: None Currently or been in a relationship where the following occur: no concerns reported THRIVE Score: 0 JOSIE-7 AMB Questionnaire JOSIE-7 Date JOSIE - 7 assessed: 10/02/23 Feeling nervous, anxious, or on edge: 1 = Several days Not being able to stop or control worryin = Several days Worrying too much about different things: 1 = Several days Trouble relaxin = Several days Being so restless that it is hard to sit still: 1 = Several days Becoming easily annoyed or irritable: 1 = Several days Feeling afraid as if something awful might happen: 1 = Several days Total JOSIE-7 score (0-4 normal; 5-9 mild; 10-14 moderate; 15-21 severe): 7 Source: Developed by Drs. Tien Simons, Marycruz Morales, Moustapha Tony and colleagues, with an educational tye from [employer]. JOSIE-7 Assessment Billing JOSIE-7 Assessment Tool: JOSIE-7 Assessment 88428 Review of Systems Const Denies chills and Denies fever(s) ENT Denies epistaxis and Denies nasal discharge Card Denies chest pain Resp Denies chest congestion, Denies cough and Denies hemoptysis GI Denies diarrhea and Denies nausea Skin/Breast Denies rash Neuro Reports no additional complaints Psych Reports no additional complaints Endo Reports no additional complaints Physical exam (Primary Care) Vital Signs: Last Vital Signs Pulse 60 10/02/23 10:11 BP 128/70 10/02/23 10:11 Pulse Ox 97 10/02/23 10:11 Oxygen Delivery Method Room Air 10/02/23 10:11 BMI result Body Mass Index 36.2 Tobacco/Smoking Status: Tobacco use Status Tobacco use date assessed 10/02/23 10/02/23 10:16 Patient Tobacco Use Status Former Tobacco user 10/02/23 10:11 Tobacco use type Cigarette 10/02/23 10:11 e-Cigarette/Vaping Use Never Used 10/02/23 10:11 PHQ-9: PHQ-9 Score PHQ-9: Total score 9 10/02/23 10:53 Depression Screening Interpretation: Negative Thrive Assessment: Date of Thrive Assessment Date Thrive assessed 10/02/23 10/02/23 10:53 Currently or been in a relationship where the following occur: no concerns reported Const General: cooperative, comfortable and no acute distress Orientation/consciousness: patient oriented x3 HENMT Head: Yes normocephalic Face images: 2 1. Erythematous rash Eyes General: appearance normal, both eyes and all related structures Neck Neck: Yes supple Chest Chest/axillae images: 2 1. No lumps, no rash noticed, mild discomfort to palpation Resp Effort & Inspection: normal respiratory effort, no cough and no stridor Cardio Rhythm: regular rhythm Heart sounds: S1 normal heart sound present and S2 normal heart sound present Skin General skin exam: turgor normal Neuro General: patient oriented x3, tone normal and moves all extremities Extrem Right lower extremity: no edema Left lower extremity: no edema Assessment and Plan Assessment & Plan (1) Diabetes 1.5, managed as type 2: Code(s): E13.9 - Other specified diabetes mellitus without complications (2) Disorder of nipple of breast: Code(s): N64.9 - Disorder of breast, unspecified (3) Rash: Code(s): R21 - Rash and other nonspecific skin eruption (4) Benign prostatic hyperplasia: Code(s): N40.0 - Benign prostatic hyperplasia without lower urinary tract symptoms Qualifiers: Lower urinary tract symptom presence: symptoms present Lower urinary tract symptom detail: urinary frequency Qualified Code(s): N40.1 - Benign prostatic hyperplasia with lower urinary tract symptoms; R35.0 - Frequency of micturition (5) Lipid disorder: Code(s): E78.9 - Disorder of lipoprotein metabolism, unspecified (6) Obesity due to excess calories: Code(s): E66.09 - Other obesity due to excess calories Qualifiers: Obesity classification: adult class 2 (BMI 35 - 39.9) Serious obesity comorbidity presence: with serious comorbidity Body mass index: BMI 36.0-36.9 Qualified Code(s): E66.01 - Morbid (severe) obesity due to excess calories; Z68.36 - Body mass index [BMI] 36.0-36.9, adult (7) Anxiety disorder: Code(s): F41.9 - Anxiety disorder, unspecified Qualifiers: Anxiety disorder type: phobia Phobia type: fear of injections Qualified Code(s): F40.231 - Fear of injections and transfusions (8) Arthrosis: Code(s): M19.90 - Unspecified osteoarthritis, unspecified site (9) HTN (hypertension), benign: Code(s): I10 - Essential (primary) hypertension (10) Anxiety, generalized: Code(s): F41.1 - Generalized anxiety disorder (11) Thrombocytopenia: Code(s): D69.6 - Thrombocytopenia, unspecified (12) Thoracic radiculitis: Code(s): M54.14 - Radiculopathy, thoracic region Plan Patient is 73-year-old gentleman came in today for his regular follow-up appointment Colonoscopy appointment is coming up in December Patient is complaining of itching left nipple with some discomfort He has also developed a rash on the tip of his nose which comes and goes I have sent steroid cream that he may use around the nipple and nose and see if that resolves the problem otherwise he is to get back to me Continued to feel anxiety he has tried buspirone but felt drowsy so stopped taking it. I prescribed Lexapro for him but he did not take it, patient says that he only feel anxiety when he look at needles Blood pressure is well controlled , he is on atenolol 25 mg patient is tolerating medication no side effects Diabetes mellitus continue glipizide 10 mg b.i.d. pioglitazone 45 mg daily hemoglobin A1c is well controlled He had eye exam and that showed no diabetic complications He is taking atorvastatin 10 mg for lipid control And tamsulosin and finasteride for BPH through urology Joint pains are stable patient is taking Tylenol as needed BMI is elevated need to lose weight Vitamin-D supplement Thrombocytopenia: Mild and stable Continued to have pain mid back radiating to right side to worse abdomen. Has been evaluated by back specialist and was told that he has scoliosis Workup and management is still in progress Telemedicine 2 weeks for left nipple pain itching Follow-up 3 months Coding Level of Care Code Est Pt Level 4 (21454) Diagnoses Diabetes 1.5, managed as type 2 E13.9 Disorder of nipple of breast N64.9 Rash R21 Benign prostatic hyperplasia with urinary frequency N40.1; R35.0 Lower urinary tract symptom presence: symptoms present Lower urinary tract symptom detail: urinary frequency Lipid disorder E78.9 Class 2 severe obesity due to excess calories with serious comorbidity and body mass index (BMI) of 36.0 to 36.9 in adult E66.01; Z68.36 Obesity classification: adult class 2 (BMI 35 - 39.9) Serious obesity comorbidity presence: with serious comorbidity Body mass index: BMI 36.0-36.9 Fear of injections F40.231 Anxiety disorder type: phobia Phobia type: fear of injections Arthrosis M19.90 HTN (hypertension), benign I10 Anxiety, generalized F41.1 Thrombocytopenia D69.6 Thoracic radiculitis M54.14 Additional Codes JOSIE-7 Assessment Billing - JOSIE-7 Assessment Tool: JOSIE-7 Assessment [id number] ([id number])
[2023-10-02 10:11] VITALS: BP 128/70; PULSE 60; O2SAT 97; BMI 36.2
== END 2023-10-02 10:58 | disposition home or self-care (01) ==
PROVIDERS: PCP Internal Medicine; Visit Provider Internal Medicine
DX: E13.9 Other specified diabetes mellitus without complications (principal); E66.01 Morbid (severe) obesity due to excess calories; D69.6 Thrombocytopenia, unspecified; Z68.36 Body mass index [BMI] 36.0-36.9, adult; N64.9 Disorder of breast, unspecified; E78.9 Disorder of lipoprotein metabolism, unspecified; R21 Rash and other nonspecific skin eruption; N40.1 Benign prostatic hyperplasia with lower urinary tract symptoms; R35.0 Frequency of micturition; F40.231 Fear of injections and transfusions; M19.90 Unspecified osteoarthritis, unspecified site
CPT/HCPCS: 99214

== ENCOUNTER 2023-10-16 07:03 | Outpatient (AMB) | payer BC, SELFPAY ==
--- NOTE | 2023-10-16 07:28 | A.OFFPC_ITS ---
Intake Visit Reasons: 2 week follow up Allergies oxycodone Adverse Reaction (Verified 10/16/23 07:29) panic attack Medication List - Last Reconciled 10/16/23 by Emily Yoder MD aspirin (Adult Low Dose Aspirin) 81 mg PO DAILY 90 days atenolol 25 mg PO DAILY 90 days atorvastatin 10 mg PO DAILY blood sugar diagnostic ([employer] Ultra Test strips) test blood sugars twice a day blood-glucose meter (Sun-eee Ultra2 Meter) As directed to test blood sugar cholecalciferol (vitamin D3) 25 mcg PO DAILY 90 days clotrimazole-betamethasone 1-0.05 % 1 appl topical BID 30 days glipizide 10 mg (2 x 5 mg) PO BID 90 days lancets (Sun[employer]eee Delica Plus Lancet) test blood sugars twice a day magnesium citrate 100 mg PO DAILY multivitamin 1 tab PO DAILY pioglitazone 45 mg PO DAILY 90 days sucralfate (Carafate) 2 grams (2 x 1 gram) PO BEDTIME tamsulosin 0.4 mg PO DAILY Tobacco use date assessed: 10/16/23 Fall risk assessment: No Falls in past year Last assessed Fall Risk: 10/16/23 Dental Screening Dental Screen Date: 10/16/23 Did you have a dental visit in the last 12 months?: No Was dental information given to patient?: No HPI 2 week follow up HPI Details Patient is 73-year-old male this is a telemedicine video conference Patient complained of soreness and itching left nipple few days ago I prescribed Lotrisone cream This visit is to follow-up on that medical problem Patient says that he is feeling little better but he has not received the cream I have sent the Lotrisone again, patient is to check with the pharmacy Use that at night for a week and get back to me. [facility] Medical History Hyperlipidemia Diabetes mellitus, type II BPH (benign prostatic hyperplasia) HTN (hypertension) Dyslipidemia Bladder outlet obstruction Dribbling following urination Nocturia Rash Lipid disorder Benign prostatic hyperplasia Diabetes 1.5, managed as type 2 Anxiety, generalized Surgical History History of colonoscopy Family History Father History of cancer Mother History of cancer Social History Housing: House Alcohol intake: current Alcohol intake frequency: holidays/special occasions only Patient Tobacco Use Status: Former Tobacco user Quit Date: 2010 Tobacco use type: Cigarette e-Cigarette/Vaping Use: Never Used service: No Current occupational status: retired Cognitive needs: No Hearing needs: No Vision needs: No Questionnaire Thrive Questionnaire Date Thrive assessed: 10/02/23 AUDIT C Alcohol Use Questionnaire (AUDIT-C) 1. How often do you have a drink containing alcohol?: Never Total Score: 0 JOSIE-7 AMB Questionnaire JOSIE-7 Date JOSIE - 7 assessed: 10/02/23 Source: Developed by Drs. Tien Simons, Marycruz Morales, Moustapha Tony and colleagues, with an educational tye from [employer]. Review of Systems Const Denies chills and Denies fever(s) ENT Denies epistaxis and Denies nasal discharge Card Denies chest pain Resp Denies chest congestion, Denies cough and Denies hemoptysis GI Denies diarrhea and Denies nausea Skin/Breast Denies rash Neuro Reports no additional complaints Psych Reports no additional complaints Endo Reports no additional complaints Physical exam (Primary Care) Tobacco/Smoking Status: Tobacco use Status Tobacco use date assessed 10/16/23 10/16/23 07:31 Patient Tobacco Use Status Former Tobacco user 10/16/23 07:29 Tobacco use type Cigarette 10/16/23 07:29 e-Cigarette/Vaping Use Never Used 10/16/23 07:29 Thrive Assessment: Date of Thrive Assessment Date Thrive assessed 10/02/23 10/16/23 07:29 Telehealth Telehealth Location of provider rendering services: practice address Location of patient: address on file Patient Identification confirmed using: Name, : Yes Telehealth method: video Patient verbally consented to treatment: Yes Patient verbally consented to billing insurance company: Yes Patient informed of any privacy concerns related to visit: Yes Minutes spent on Phone/Video with Pt.: 12 Assessment and Plan Assessment & Plan (1) Disorder of nipple of breast: Code(s): N64.9 - Disorder of breast, unspecified Plan Patient is 73-year-old male this is a telemedicine video conference Patient complained of soreness and itching left nipple few days ago I prescribed Lotrisone cream This visit is to follow-up on that medical problem Patient says that he is feeling little better but he has not received the cream I have sent the Lotrisone again, patient is to check with the pharmacy Use that at night for a week and get back to me. Medications: Refilled clotrimazole-betamethasone 1-0.05 % 1 appl topical BID 30 days 45 grams 3RF Coding Level of Care Code Tele Est Pt Level 3 (36984) Diagnoses Disorder of nipple of breast N64.9
== END 2023-10-16 09:14 | disposition home or self-care (01) ==
PROVIDERS: PCP Internal Medicine; Visit Provider Internal Medicine
DX: N64.9 Disorder of breast, unspecified (principal)
CPT/HCPCS: 99213

== ENCOUNTER 2023-11-03 11:26 | Outpatient (AMB) | payer BC, SELFPAY ==
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
[2023-11-03 12:57] VITALS: BP 129/64; PULSE 56; BMI 36.0
== END 2023-11-03 13:39 | disposition home or self-care (01) ==
PROVIDERS: PCP Internal Medicine; Visit Provider Nurse Practitioner
DX: D12.6 Benign neoplasm of colon, unspecified (principal); K58.0 Irritable bowel syndrome with diarrhea; K82.8 Other specified diseases of gallbladder; R35.0 Frequency of micturition; K21.9 Gastro-esophageal reflux disease without esophagitis; E11.65 Type 2 diabetes mellitus with hyperglycemia; M47.814 Spondylosis without myelopathy or radiculopathy, thoracic region
CPT/HCPCS: 99214

== ENCOUNTER → 2023-11-03 11:26 | Outpatient (BNVA) | payer BC, SELFPAY | PROVIDERS: PCP Internal Medicine; Visit Provider Nurse Practitioner ==

== ENCOUNTER 2023-11-24 12:22 | Outpatient (AMB) | payer BC, SELFPAY ==
[2023-11-24 12:26] VITALS: BP 136/82; PULSE 64; TEMP 36.7; O2SAT 96; BMI 35.9
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
== END 2023-11-24 13:30 | disposition home or self-care (01) ==
PROVIDERS: PCP Internal Medicine; Visit Provider Internal Medicine
DX: E13.9 Other specified diabetes mellitus without complications (principal); E66.01 Morbid (severe) obesity due to excess calories; D69.6 Thrombocytopenia, unspecified; Z68.35 Body mass index [BMI] 35.0-35.9, adult; I10 Essential (primary) hypertension; R68.89 Other general symptoms and signs; M25.532 Pain in left wrist; E78.9 Disorder of lipoprotein metabolism, unspecified; N40.1 Benign prostatic hyperplasia with lower urinary tract symptoms; R35.0 Frequency of micturition; M54.50 Low back pain, unspecified; G89.29 Other chronic pain
CPT/HCPCS: 99214

== ENCOUNTER 2023-11-24 16:56 | Outpatient (REF) | payer BC, SELFPAY ==
[2023-11-24 18:08] LABS: Influenza A PCR NEGATIVE (Negative); Influenza B PCR NEGATIVE (Negative); Resp Syncy Virus RNA Qual PCR NEGATIVE (Negative); SARS COV2 PCR INHOUSE NEGATIVE (Negative)
== END 2023-11-24 16:57 | disposition home or self-care (01) ==
LOC: HO.LNP 16:56
PROVIDERS: Visit Provider Internal Medicine
DX: Z11.52 Encounter for screening for COVID-19 (principal); Z20.822 Contact with and (suspected) exposure to COVID-19; R09.89 Other specified symptoms and signs involving the circulatory and respiratory systems
CPT/HCPCS: 0241U

== ENCOUNTER 2023-12-25 14:01 | Outpatient (AMB) | payer MEDICARE, SELFPAY ==
[2023-12-25 14:41] VITALS: BP 122/76; PULSE 78; TEMP 36.6; O2SAT 96; BMI 35.8
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
== END 2023-12-25 16:07 | disposition home or self-care (01) ==
PROVIDERS: PCP Internal Medicine; Visit Provider Physician Assistant Medical
DX: B37.9 Candidiasis, unspecified (principal)
CPT/HCPCS: 81003; 82948; 99213; 99499

== ENCOUNTER 2024-01-05 06:02 | Day surgery (SDC) | payer MEDICARE, SELFPAY ==
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
[2024-01-05 06:50] VITALS: BP 163/86; PULSE 64; RESP 20; TEMP 36.3; O2SAT 96; BMI 35.5
[2024-01-05] MEDS: Lactated Ringers 1,000 ML 100 ML IVCONT (07:06)
[2024-01-05 07:09] LABS: Glucose, Whole Blood 164 mg/dL (60-115)
--- NOTE | 2024-01-05 08:39 | W.PM.OPN ---
Operative Note Operative Note Date of Service: 01/05/24 Narrative: Operative Information Procedure Description: Colonoscopy Indication: screening Anesthesia: MAC COLONOSCOPY Instrument: Olympus variable stiffness pediatric scope 190L Colonoscopy Monitoring: Vital signs and clinical assessment, continuous EKG monitoring, Pulse oximetry, Carbon Dioxide monitoring and blood pressure monitoring were done throughout the procedure. Colon withdrawal time was 12 minutes. Procedure: The patient was placed in the left lateral decubitis position and pre-procedure medications were administered. After a digital rectal examination of the ano-rectum, the video colonoscope was inserted into the rectum and advanced through the colon to the cecum/TI. The colonoscope was slowly withdrawn in a retrograde panoramic fashion and the colon mucosa was carefully examined including a retroflexed view of the rectum. Findings and interventions are described below. Procedure Difficulty: moderate Findings: Terminal Ileum-normal Cecum: 2-3 mm polypoid lesion removed with cold forceps Ascending Colon: mild diverticulosis Transverse Colon -normal Descending Colon: 4-6 mm sessile polyp removed with cold forceps Sigmoid Colon: moderate severe diverticulosis Rectum: Retroflexion with small internal hemorrhoids seen, grade I Anorectum - normal Intervention: cold forceps polypectomy Colon preparation: Water View Bowel Preparation Scale Right colon; 2 Transverse colon: 2 Left colon; 2 (0 = Unprepared colon segment with mucosa not seen due to solid stool that cannot be cleared. 1 = Portion of mucosa of the colon segment seen, but other areas of the colon segment not well seen due to staining, residual stool and/or opaque liquid. 2 = Minor amount of residual staining, small fragments of stool and/or opaque liquid, but mucosa of colon segment seen well. 3 = Entire mucosa of colon segment seen well with no residual staining, small fragments of stool or opaque liquid) Impression and Post Procedure Diagnosis: diverticulosis colon polyps internal hemorrhoids Plan: High fiber diet leaflet Avoid straining at stool, epsom salts and sitz bath, anusol supps or cream Repeat Colonoscopy in 5 years if adenomatous polyps, 10 years if non adenomatous or earlier if clinically indicated Above findings were reviewed with the patient and relevant handouts were provided if indicated.
[2024-01-05 08:43] VITALS: BP 115/82; PULSE 79; RESP 18; TEMP 37.4; O2SAT 98
[2024-01-05 08:58] VITALS: BP 124/87; PULSE 65; RESP 18; TEMP 36.4; O2SAT 95
== END 2024-01-05 09:46 | disposition home or self-care (01) ==
PROVIDERS: PCP Internal Medicine; Visit Provider Internal Medicine Gastroenterology
PROC: 0DJD8ZZ Inspection of Lower Intestinal Tract, Via Natural or Artificial Opening Endoscopic (ICD-10-PCS; CPT 45378; principal; 2024-01-05 08:20)
DX: Z12.11 Encounter for screening for malignant neoplasm of colon (principal); Z86.010 Personal history of colon polyps; K63.5 Polyp of colon; K57.30 Diverticulosis of large intestine without perforation or abscess without bleeding; K64.0 First degree hemorrhoids; K58.0 Irritable bowel syndrome with diarrhea; K82.8 Other specified diseases of gallbladder; M54.9 Dorsalgia, unspecified; M47.814 Spondylosis without myelopathy or radiculopathy, thoracic region; I10 Essential (primary) hypertension; E78.5 Hyperlipidemia, unspecified; E13.9 Other specified diabetes mellitus without complications; Z88.5 Allergy status to narcotic agent; Z87.891 Personal history of nicotine dependence; Z79.899 Other long term (current) drug therapy
CPT/HCPCS: 45380; 82947; 88305; J2704

== ENCOUNTER → 2024-01-05 06:02 | Outpatient (BNV) | payer MEDICARE, SELFPAY | PROVIDERS: PCP Internal Medicine; Visit Provider Internal Medicine Gastroenterology | DX: Z12.11 Encounter for screening for malignant neoplasm of colon (principal); K63.5 Polyp of colon; K57.90 Diverticulosis of intestine, part unspecified, without perforation or abscess without bleeding; K64.0 First degree hemorrhoids | CPT/HCPCS: 45380 ==

== ENCOUNTER 2024-01-19 09:23 | Outpatient (AMB) | payer BC, SELFPAY ==
[2024-01-19 09:40] VITALS: BP 153/65; PULSE 52; BMI 35.7
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
== END 2024-01-19 10:26 | disposition home or self-care (01) ==
PROVIDERS: PCP Internal Medicine; Visit Provider Nurse Practitioner
DX: M47.814 Spondylosis without myelopathy or radiculopathy, thoracic region (principal); M54.6 Pain in thoracic spine; R10.10 Upper abdominal pain, unspecified; K21.9 Gastro-esophageal reflux disease without esophagitis; D12.6 Benign neoplasm of colon, unspecified; K82.8 Other specified diseases of gallbladder; K58.0 Irritable bowel syndrome with diarrhea
CPT/HCPCS: 99214

== ENCOUNTER → 2024-01-19 09:23 | Outpatient (BNVA) | payer BC, SELFPAY | PROVIDERS: PCP Internal Medicine; Visit Provider Nurse Practitioner ==

== ENCOUNTER 2024-02-02 08:11 | Outpatient (REF) | payer MEDICARE, SELFPAY ==
--- NOTE | ~2024-02-02 | US_ITS ---
EXAMINATION: US ABDOMEN COMPLETE CLINICAL INFORMATION: Upper abdominal pain, unspecified. COMPARISON: Ultrasound kidneys and bladder 01/24/2020. Ultrasound abdomen 03/09/2019. TECHNIQUE: Real-time imaging of the abdominal viscera. FINDINGS: PANCREAS: Normal head and body, the tail is obscured by bowel gas. ABDOMINAL AORTA: The proximal, mid, and distal segments are normal in caliber. INFERIOR VENA CAVA: Visualized portions are normal. LIVER: The liver is normal in size. The liver contour is normal. There is diffuse increased liver parenchymal echogenicity, consistent with hepatic steatosis. 1.3 x 1.3 x 1.3 cm simple cyst is seen in the right lobe. There is no intrahepatic biliary duct dilatation seen. GALLBLADDER: The gallbladder is physiologically distended. Multiple mobile gallstones are present. No evidence of gallbladder wall thickening or pericholecystic fluid. No sonographic Petersen's sign. COMMON BILE DUCT: Normal in caliber measuring 0.5 cm in diameter. RIGHT KIDNEY: Normal. No hydronephrosis. No renal calculi or focal parenchymal lesions. The kidney measures 10.5 cm in maximum dimension. LEFT KIDNEY: No hydronephrosis or renal calculi. The kidney measures 10.9 cm in maximum dimension. 0.5 x 0.5 x 0.5 cm echogenic focus in the mid kidney likely represents an angiomyolipoma. A 0.4 cm echogenic focus was seen in this location on abdominal ultrasound of 03/09/2019. SPLEEN: Normal. The spleen measures 11.1 cm in maximum dimension. FREE FLUID: None. US/US abdomen complete IMPRESSION: 1. Hepatic steatosis. 2. 1.3 cm simple cyst in the right lobe of the liver. 3. Cholelithiasis. 4. 0.5 cm echogenic focus in the mid left kidney likely represents an angiomyolipoma.
[2024-02-02 10:18] LABS: MANUAL DIFF FLAG NO
[2024-02-02 10:33] LABS: Basophils Percent Auto 0.5 % (0-2); Eosinophils Absolute Auto 0.1 X10*3/uL (0.0-0.4); Eosinophils Percent Auto 1.8 % (0-4); Hematocrit 46.2 % (42.0-52.0); Hemoglobin 15.3 g/dl (14.0-18.0); Imm Gran Abs Auto 0.03 X10*3/uL (0.00-0.03); Imm Gran Pct Auto 0.5 % (0.0-0.4); Lymphocytes Absolute Auto 1.9 X10*3/uL (1.2-4.9); Lymphocytes Percent Auto 33.5 % (20-40); Mean Corpuscular HGB Conc 33.1 g/dl (31.0-36.0); Mean Corpuscular Hemoglobin 29.3 pg (27.0-33.0); Mean Corpuscular Volume 88.5 fL (80.0-98.0); Mean Platelet Volume 12.8 fL (9.4-12.4); Monocytes Absolute Auto 0.5 X10*3/uL (0.1-1.2); Monocytes Percent Auto 8.1 % (2-11); Neutrophils Absolute Auto 3.2 x10*3/uL (2.0-8.3); Neutrophils Percent Auto 55.6 % (45-73); Platelet Count 154 X10*3/uL (160-400); Red Blood Count 5.22 X10*6/uL (4.60-5.80); Red Cell Distribution Width 13.4 % (11.0-16.0); White Blood Count 5.7 X10*3/uL (4.8-10.8)
[2024-02-02 10:49] LABS: Estimated Average Glucose 200 mg/dL; Hemoglobin A1c % 8.6 % (<6.0)
[2024-02-02 10:57] LABS: Alanine Aminotransferase 46 U/L (0-40); Albumin Level 4.3 g/dL (3.5-5.0); Alkaline Phosphatase 109 U/L (39-117); Anion Gap 14 (12-20); Aspartate Amino Transferase 33 U/L (5-37); Bilirubin Total 1.1 mg/dL (0.0-1.0); Blood Urea Nitrogen 12 mg/dL (9-16); Calcium 9.8 mg/dL (8.4-10.2); Carbon Dioxide 28 mmol/L (22-29); Chloride 106 mmol/L (96-108); Estimated Glomerular Filt Rate > 60; Glucose Random 185 mg/dL (60-115); Potassium 4.1 mmol/L (3.3-5.1); Sodium 144 mmol/L (135-145); Total Protein 6.9 g/dL (6.5-8.0)
[2024-02-02 11:09] LABS: Creatinine Urine 302.33 mg/dL; Microalbum/Creatinine Ratio Ur 5.9 ug/mg cr (<30)
[2024-02-02 11:11] LABS: Prostate Specific Antigen 4.06 ng/mL (<0.05-4.0)
[2024-02-03 11:48] LABS: LDL Cholesterol Direct 83 mg/dL (<100)
== END 2024-02-02 08:12 | disposition home or self-care (01) ==
LOC: HO.HMGCX 08:11
PROVIDERS: PCP Internal Medicine; Referring Provider Internal Medicine; Visit Provider Nurse Practitioner
DX: Z12.5 Encounter for screening for malignant neoplasm of prostate (principal); R10.10 Upper abdominal pain, unspecified; I10 Essential (primary) hypertension; N40.0 Benign prostatic hyperplasia without lower urinary tract symptoms; M54.14 Radiculopathy, thoracic region; G89.4 Chronic pain syndrome; F41.9 Anxiety disorder, unspecified; E13.9 Other specified diabetes mellitus without complications; E78.9 Disorder of lipoprotein metabolism, unspecified; K58.0 Irritable bowel syndrome with diarrhea; E66.09 Other obesity due to excess calories; D69.6 Thrombocytopenia, unspecified; K21.9 Gastro-esophageal reflux disease without esophagitis; M54.50 Low back pain, unspecified
CPT/HCPCS: 36415; 76700; 80053; 82043; 82570; 83036; 83721; 84153; 85025

== ENCOUNTER 2024-02-08 12:31 | Outpatient (REF) | payer BC, SELFPAY ==
--- NOTE | ~2024-02-08 | MR_ITS ---
EXAMINATION: MR THORACIC SPINE WITHOUT CONTRAST CLINICAL INFORMATION: 74-year-old with self-reported the thoracic pain, worsening on right side. Spondylosis without myelopathy or radiculopathy, thoracic region. COMPARISON: None available. TECHNIQUE: MRI of the thoracic spine was obtained using routine sequences without contrast. FINDINGS: ALIGNMENT: S-shaped thoracolumbar scoliotic curvature noted, mildly convex to the left at T9 and to the right at L2. Mild kyphotic angulation centered at T5-T6. VERTEBRAL BODIES AND BONE MARROW: Vertebral body heights are well-maintained. No suspicious marrow replacing process or bone marrow edema. Multilevel degenerative endplate marrow signal changes are seen. 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 No destructive endplate changes. PARASPINAL SOFT TISSUES: The paravertebral soft tissues are grossly unremarkable. The visualized extraspinal soft tissue structures demonstrate probable subcentimeter bilateral renal cortical cysts, which are incompletely assessed on this exam without corresponding T1-weighted images. These can be confirmed sonographically if clinically warranted. SPINAL CORD: Allowing for artifacts on sagittal STIR imaging, the thoracic spinal cord is normal in caliber throughout, without definite focal lesion, edema or significant syrinx. The conus terminates at the T12-L1 level. SPINAL LEVELS: C7-T1: Facet joint arthropathy on the left. No disc herniation or canal stenosis. Mild left-sided foraminal narrowing. T1-T2: Bilateral facet joint arthropathy with moderate left-sided neural foraminal stenosis. T2-T3: Facet joint arthropathy noted bilaterally, left more than right, with [id number] left-sided neural foraminal stenosis. T3-T4: Ligamentum flavum thickening and facet joint arthropathy, left more than right, with a small left paramedian disc osteophyte complex without significant canal stenosis. There is mild foraminal narrowing bilaterally. T4-T5: Left and right paramedian disc osteophyte complexes are noted without cord impingement. Ligamentum flavum thickening noted with bilateral facet joint arthropathy without significant spinal canal stenosis. Minor foraminal narrowing on the left and moderate on the right. T5-T6: Left paramedian disc protrusion without cord impingement. Bilateral facet joint arthrosis with [id number] neural foraminal stenosis, right more than left. T6-T7: Bilateral facet joint arthrosis is noted with [id number] bilateral neural foraminal stenosis. T7-T8: Small left paramedian disc protrusion. No cord impingement or significant canal stenosis. Bilateral facet joint arthropathy noted with moderate bilateral neural foraminal stenosis. Bilateral costovertebral arthrosis also noted. T8-T9: Small left paramedian disc protrusion without cord impingement or foraminal encroachment. Bilateral facet joint arthrosis is noted with moderate left and [id number] right-sided neural foraminal stenosis. T9-T10: No disc herniation or canal stenosis. Bilateral facet joint arthropathy noted with moderate right-sided neural foraminal stenosis. T10-T11: No disc herniation or canal stenosis. Facet joint arthropathy and ligament of flavum thickening noted on the right with mild foraminal narrowing on the right. Bilateral costovertebral arthrosis. T11-T12: No disc herniation or canal stenosis. Mild facet joint arthropathy on the right without significant neural foraminal stenosis. T12-L1: Tiny left paramedian disc protrusion. No facet arthrosis, canal or foraminal stenosis. MR/MR thoracic spine wo con IMPRESSION: 1. Thoracolumbar scoliotic curvature, as described above, with mild kyphosis centered at T5-T6. 2. Multilevel DDD and spondylosis, with multilevel small disc protrusions and multilevel bilateral facet joint arthropathy with multilevel bilateral thoracic neural foraminal stenosis as detailed by level above. No spinal cord impingement or significant spinal canal stenosis. 3. Findings suggesting the possibility of DISH with ossification of the anterior longitudinal ligament at T9-T10 and T10-T11. 4. No cord compression, cord edema or significant syrinx formation.
== END 2024-02-08 12:32 | disposition home or self-care (01) ==
LOC: HO.MRI 12:31
PROVIDERS: PCP Internal Medicine; Visit Provider Nurse Practitioner
DX: M47.814 Spondylosis without myelopathy or radiculopathy, thoracic region (principal); M54.6 Pain in thoracic spine
CPT/HCPCS: 72146

== ENCOUNTER 2024-02-23 11:39 | Outpatient (AMB) | payer MEDICARE, SELFPAY ==
[2024-02-23 11:40] VITALS: BMI 35.7
--- NOTE | 2024-02-23 11:40 | MHC.OFFVIS ---
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 with meals and/or snacks 2 caps PO BID 120 caps 6RF K80.20 - Calculus of gallbladder without cholecystitis without obstruction Coding Level of Care Code Est Pt Level 4 (25679) Diagnoses Upper abdominal pain R10.10 Thoracic back pain M54.6 Gastroesophageal reflux disease without esophagitis K21.9 Esophagitis presence: without esophagitis Irritable bowel syndrome with diarrhea K58.0 DISH (diffuse idiopathic skeletal hyperostosis) M48.10 Gallstones K80.20 Time Spent (min) 38
== END 2024-02-23 12:16 | disposition home or self-care (01) ==
PROVIDERS: PCP Internal Medicine; Visit Provider Nurse Practitioner
DX: R10.10 Upper abdominal pain, unspecified (principal); M54.6 Pain in thoracic spine; K21.9 Gastro-esophageal reflux disease without esophagitis; K58.0 Irritable bowel syndrome with diarrhea; M48.10 Ankylosing hyperostosis [Forestier], site unspecified; K80.20 Calculus of gallbladder without cholecystitis without obstruction
CPT/HCPCS: 99214

== ENCOUNTER → 2024-02-23 11:39 | Outpatient (BNVA) | payer MEDICARE, SELFPAY | PROVIDERS: PCP Internal Medicine; Visit Provider Nurse Practitioner | DX: R10.10 Upper abdominal pain, unspecified (principal); K21.9 Gastro-esophageal reflux disease without esophagitis; K58.0 Irritable bowel syndrome with diarrhea; K80.20 Calculus of gallbladder without cholecystitis without obstruction; M54.6 Pain in thoracic spine; M48.10 Ankylosing hyperostosis [Forestier], site unspecified | CPT/HCPCS: 99212 ==

== ENCOUNTER 2024-03-25 13:17 | Outpatient (AMB) | payer BC, SELFPAY ==
[2024-03-25 13:30] VITALS: BP 144/62; PULSE 58; O2SAT 94; BMI 35.7
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
== END 2024-03-25 14:17 | disposition home or self-care (01) ==
PROVIDERS: PCP Internal Medicine; Visit Provider Internal Medicine
DX: Z00.00 Encounter for general adult medical examination without abnormal findings (principal); K80.20 Calculus of gallbladder without cholecystitis without obstruction; E13.9 Other specified diabetes mellitus without complications; E78.9 Disorder of lipoprotein metabolism, unspecified; I10 Essential (primary) hypertension; K58.8 Other irritable bowel syndrome; N40.1 Benign prostatic hyperplasia with lower urinary tract symptoms; R35.0 Frequency of micturition; F40.231 Fear of injections and transfusions; K21.9 Gastro-esophageal reflux disease without esophagitis
CPT/HCPCS: 93000; 99214; 99397

== ENCOUNTER 2024-06-28 13:26 | Outpatient (AMB) | payer MEDICARE, SELFPAY ==
[2024-06-28 13:31] VITALS: BP 132/84; PULSE 55; O2SAT 92; BMI 35.4
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
== END 2024-06-28 14:08 | disposition home or self-care (01) ==
PROVIDERS: PCP Internal Medicine; Visit Provider Internal Medicine
DX: I10 Essential (primary) hypertension (principal); E13.9 Other specified diabetes mellitus without complications; D69.6 Thrombocytopenia, unspecified; E66.812 Obesity, class 2; Z68.35 Body mass index [BMI] 35.0-35.9, adult; N40.1 Benign prostatic hyperplasia with lower urinary tract symptoms; R35.0 Frequency of micturition; F40.231 Fear of injections and transfusions; E78.9 Disorder of lipoprotein metabolism, unspecified; K21.9 Gastro-esophageal reflux disease without esophagitis

== ENCOUNTER → 2024-06-28 13:26 | Outpatient (BNVA) | payer MEDICARE, SELFPAY | PROVIDERS: PCP Internal Medicine; Visit Provider Internal Medicine | DX: I10 Essential (primary) hypertension (principal); E13.9 Other specified diabetes mellitus without complications; N40.1 Benign prostatic hyperplasia with lower urinary tract symptoms; R35.0 Frequency of micturition; F40.231 Fear of injections and transfusions; E78.9 Disorder of lipoprotein metabolism, unspecified; D69.6 Thrombocytopenia, unspecified; K21.9 Gastro-esophageal reflux disease without esophagitis; E66.01 Morbid (severe) obesity due to excess calories; Z68.36 Body mass index [BMI] 36.0-36.9, adult; Z71.3 Dietary counseling and surveillance | CPT/HCPCS: 83036; 96127; 99212 ==

== ENCOUNTER 2024-10-11 11:33 | Outpatient (AMB) | payer MEDICARE, SELFPAY ==
[2024-10-11 11:38] VITALS: BP 130/78; PULSE 82; O2SAT 100; BMI 35.5
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
--- OUTSIDE RECORDS SUMMARY | 2024-10-11 12:48 | XMS_ITS | Clinical Summary ---
Author Organization [facility] ity Address [address] [place] [address] Care Team Providers Care [employer] Name Role Phone Emily Yoder MD Primary Care Provider [phone] Social History Tobacco Use Types Packs/Day Years Used Date Smoking Tobacco: Never Assessed Sex and Gender Information Value Date Recorded Sex Assigned at Not on file Gender Identity Not on file Sexual Orientation Not on file Last Filed Vital Signs Vital Sign Reading Time Taken Comments Blood Pressure 124/84 06/15/2024 2:34 PM EDT Pulse 66 06/15/2024 2:34 PM EDT Temperature - - Respiratory Rate - - Oxygen Saturation - - Inhaled Oxygen Concentration - - Weight 86.9 kg (191 lb 9.6 oz) 06/15/2024 2:34 P M EDT Height 160 cm (5' 3 ) 06/15/2024 2:34 PM EDT Body Mass Index 33.94 06/15/2024 2:34 PM EDT Plan of Treatment Health Maintenance Due Date Last Done Comments DTaP,Tdap,and Td Vaccines (1 - Tdap) 02/04/1971 Zoster Vaccines (1 of 2) 02/04/2002 Pneumococcal Vaccine: 65+ Ye ars (1 of 1 - PCV) 02/04/2017 Abdominal Aortic Aneurysm (A AA) Screen 10/13/2023 Cholesterol Screening (Lipid Panel) 10/13/2023 Colorectal Cancer Screening: Colonoscopy 10/13/2023 Depression Screening 10/13/2023 Falls Risk Assessment 10/13/2023 Hepatitis C Screening 10/13/2023 Social Influencers of Health Screening 10/13/2023 COVID-19 Vaccine (1 - 2023-2 5 season) 2024 Influenza Vaccine (#1) 2024 RSV Immunization Patients 60 + Years Old (1 - 1-dose 75+ series) 02/04/2027 HIB Vaccines Aged Out No longer eligi ble based on patient's age to complete this topic HPV Vaccines Aged Out No longer eligi ble based on patient's age to complete this topic Hepatitis A Vaccines Aged Out No long er eligible based on patient's age to complete this topic Hepatitis B Vaccines Aged Out No long er eligible based on patient's age to complete this topic IPV Vaccines Aged Out No longer eligi ble based on patient's age to complete this topic MMR Vaccines Aged Out No longer eligi ble based on patient's age to complete this topic Meningococcal ACWY Vaccine Aged Out N o longer eligible based on patient's age to complete this topic RSV Immunization Patients Un chasity 20 months Aged Out No longer eligible b ased on patient's age to complete this topic Varicella Vaccines Aged Out No longer eligible based on patient's age to complete this topic Care Teams [employer] Relationship Specialty Start Date End Date Emily Yoedr MD [address] [place] [id number] PCP - General 08/11/22
== END 2024-10-11 12:02 | disposition home or self-care (01) ==
PROVIDERS: PCP Internal Medicine; Visit Provider Internal Medicine
DX: I10 Essential (primary) hypertension (principal); E13.9 Other specified diabetes mellitus without complications; N40.1 Benign prostatic hyperplasia with lower urinary tract symptoms; R35.0 Frequency of micturition; F41.1 Generalized anxiety disorder; E78.9 Disorder of lipoprotein metabolism, unspecified; K58.0 Irritable bowel syndrome with diarrhea; E66.01 Morbid (severe) obesity due to excess calories; Z68.36 Body mass index [BMI] 36.0-36.9, adult; D69.6 Thrombocytopenia, unspecified; K21.9 Gastro-esophageal reflux disease without esophagitis; F40.231 Fear of injections and transfusions

== ENCOUNTER 2024-10-11 11:33 | Outpatient (REF) | payer MEDICARE, SELFPAY ==
[2024-10-11 13:41] LABS: MANUAL DIFF FLAG NO
[2024-10-11 13:44] LABS: Basophils Percent Auto 0.6 % (0-2); Eosinophils Absolute Auto 0.1 X10*3/uL (0.0-0.4); Eosinophils Percent Auto 1.3 % (0-4); Hematocrit 47.9 % (42.0-52.0); Imm Gran Abs Auto 0.02 X10*3/uL (0.00-0.03); Imm Gran Pct Auto 0.4 % (0.0-0.4); Lymphocytes Absolute Auto 1.4 X10*3/uL (1.2-4.9); Lymphocytes Percent Auto 29.4 % (20-40); Mean Corpuscular HGB Conc 33.4 g/dl (31.0-36.0); Mean Corpuscular Hemoglobin 29.7 pg (27.0-33.0); Mean Corpuscular Volume 88.9 fL (80.0-98.0); Mean Platelet Volume 12.5 fL (9.4-12.4); Monocytes Absolute Auto 0.4 X10*3/uL (0.1-1.2); Monocytes Percent Auto 7.6 % (2-11); Neutrophils Absolute Auto 2.8 x10*3/uL (2.0-8.3); Neutrophils Percent Auto 60.7 % (45-73); Platelet Count 160 X10*3/uL (160-400); Red Blood Count 5.39 X10*6/uL (4.60-5.80); Red Cell Distribution Width 14.1 % (11.0-16.0); White Blood Count 4.6 X10*3/uL (4.8-10.8)
[2024-10-11 13:55] LABS: Estimated Average Glucose 134 mg/dL; Hemoglobin A1C 187.4252 umol/L; Hemoglobin A1c % 6.3 % (<6.0); Total Hemoglobin (HGBA1C) 4160.8316 umol/L
[2024-10-11 14:01] LABS: Creatinine Urine 241.25 mg/dL; Microalbum/Creatinine Ratio Ur 7.8 ug/mg cr (<30)
[2024-10-11 14:15] LABS: Alanine Aminotransferase 37 U/L (0-40); Albumin Level 4.4 g/dL (3.5-5.0); Alkaline Phosphatase 84 U/L (39-117); Anion Gap 12 (12-20); Aspartate Amino Transferase 27 U/L (5-37); Bilirubin Total 0.7 mg/dL (0.0-1.0); Blood Urea Nitrogen 16 mg/dL (9-16); Calcium 9.2 mg/dL (8.4-10.2); Carbon Dioxide 25 mmol/L (22-29); Chloride 109 mmol/L (96-108); Estimated Glomerular Filt Rate > 60; Glucose Random 131 mg/dL (60-115); Potassium 3.6 mmol/L (3.3-5.1); Sodium 142 mmol/L (135-145); Total Protein 7.4 g/dL (6.5-8.0)
[2024-10-11 14:29] LABS: Prostate Specific Antigen 5.24 ng/mL (<0.05-4.0); Vitamin B12 365 pg/mL (200-900)
[2024-10-11 14:33] LABS: TSH reflex Free T4 2.33 uIU/mL (0.32-4.0)
[2024-10-12 14:13] LABS: LDL Cholesterol Direct 73 mg/dL (<100)
[2024-10-15 17:18] LABS: Vitamin D 25-OH, D2 <4 ng/mL; Vitamin D 25-OH, D3 22 ng/mL; Vitamin D 25-OH, Total 22 ng/mL (30-100)
== END 2024-10-11 11:34 | disposition home or self-care (01) ==
LOC: HO.HMGCLDS 11:33
PROVIDERS: PCP Internal Medicine; Visit Provider Internal Medicine
DX: E13.9 Other specified diabetes mellitus without complications (principal); I10 Essential (primary) hypertension; N40.1 Benign prostatic hyperplasia with lower urinary tract symptoms; R35.0 Frequency of micturition; E78.9 Disorder of lipoprotein metabolism, unspecified; K58.0 Irritable bowel syndrome with diarrhea; E66.01 Morbid (severe) obesity due to excess calories; Z68.36 Body mass index [BMI] 36.0-36.9, adult; D69.6 Thrombocytopenia, unspecified; K21.9 Gastro-esophageal reflux disease without esophagitis; F40.231 Fear of injections and transfusions; F41.1 Generalized anxiety disorder; Z79.899 Other long term (current) drug therapy; Z12.5 Encounter for screening for malignant neoplasm of prostate
CPT/HCPCS: 36415; 80053; 82043; 82306; 82570; 82607; 83036; 83721; 84153; 84443; 85025; 96127; 99212

== ENCOUNTER 2025-05-10 08:11 | Outpatient (AMB) | payer MEDICARE, SELFPAY ==
[2025-05-10 08:16] VITALS: BP 126/70; PULSE 62; RESP 16; TEMP 36.7; O2SAT 94; BMI 36.4
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
--- OUTSIDE RECORDS SUMMARY | 2025-05-10 08:30 | XMS_ITS | Clinical Summary ---
Author Organization [facility] ity Address [address] [place] [address] Care Team Providers Care Product Applications Scientist Name Role Phone Emily Yoder MD Primary Care Provider [phone] Social History Tobacco Use Types Packs/Day Years Used Date Smoking Tobacco: Never Assessed Sex and Gender Information Value Date Recorded Sex Assigned at Not on file Legal Sex Male 5:20 AM EST Gender Identity Not on file Sexual Orientation [...] DTaP,Tdap,and Td Vaccines (1 - Tdap) 02/04/1971 Pneumococcal Vaccine: 50+ Ye ars (1 of 1 - PCV) 02/04/2002 Zoster Vaccines (1 of 2) 02/04/2002 Abdominal Aortic Aneurysm (A AA) Screen 10/13/2023 Cholesterol Screening (Lipid Panel) 10/13/2023 Colorectal Cancer Screening: Colonoscopy 10/13/2023 Falls Risk Assessment 10/13/2023 Hepatitis C Screening 10/13/2023 Social Influencers of Health Screening 10/13/2023 COVID-19 Vaccine ( - 2023-2 5 season) 2024 Depression Screening 09/14/2024 Influenza Vaccine (#1) 2025 RSV Immunization Adult Patie nts (1 - 1-dose 75+ series) 02/04/2027 HIB [...] patient's age to complete this topic Meningococcal B Vaccine Aged Out No l onger eligible based on patient's age to complete this topic RSV Immunization Patients Un chasity 20 months Aged Out No longer eligible b ased on patient's age to complete this topic Varicella Vaccines Aged Out No longer eligible based on patient's age to complete this topic Care Teams Product Applications Scientist Relationship Specialty Start Date End Date Emily Yoder MD [address] [place] [phone] PCP - General 08/11/22
== END 2025-05-10 08:53 | disposition home or self-care (01) ==
LOC: HO.HMCC 08:12
PROVIDERS: PCP Internal Medicine; Visit Provider Internal Medicine
DX: E13.9 Other specified diabetes mellitus without complications (principal); E66.01 Morbid (severe) obesity due to excess calories; C61 Malignant neoplasm of prostate; Z68.36 Body mass index [BMI] 36.0-36.9, adult; I10 Essential (primary) hypertension; F41.1 Generalized anxiety disorder; E78.9 Disorder of lipoprotein metabolism, unspecified; K58.0 Irritable bowel syndrome with diarrhea; D69.6 Thrombocytopenia, unspecified; K21.9 Gastro-esophageal reflux disease without esophagitis; F40.231 Fear of injections and transfusions; G25.0 Essential tremor

== ENCOUNTER → 2025-05-10 08:11 | Outpatient (BNVA) | payer MEDICARE, SELFPAY | PROVIDERS: PCP Internal Medicine; Visit Provider Internal Medicine | DX: C61 Malignant neoplasm of prostate (principal); I10 Essential (primary) hypertension; E13.9 Other specified diabetes mellitus without complications; F41.1 Generalized anxiety disorder; E78.9 Disorder of lipoprotein metabolism, unspecified; K58.0 Irritable bowel syndrome with diarrhea; D69.6 Thrombocytopenia, unspecified; K21.9 Gastro-esophageal reflux disease without esophagitis; F40.231 Fear of injections and transfusions; G25.0 Essential tremor; E66.01 Morbid (severe) obesity due to excess calories; Z68.36 Body mass index [BMI] 36.0-36.9, adult | CPT/HCPCS: 99212 ==

== ENCOUNTER 2025-08-29 09:14 | Outpatient (AMB) | payer MEDICARE, SELFPAY ==
[2025-08-29 09:17] VITALS: BP 130/72; PULSE 66; O2SAT 97; BMI 37.3
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
--- OUTSIDE RECORDS SUMMARY | 2025-08-29 10:35 | XMS_ITS | Clinical Summary ---
Author Organization [employer] [facility] ity Address [address] [place] [address] Care Team Providers Care Technician Chemical Cleaning Name Role Phone Emily Yoder MD Primary Care Provider [phone] Social History Tobacco Use Types Packs/Day Years [...] Health Maintenance Due Date Last Done Comments Colorectal Cancer Screening: Colonoscopy 1950 DTaP,Tdap,and Td Vaccines (1 - Tdap) 02/04/1971 Pneumococcal Vaccine: 50+ Ye ars (1 of 1 - PCV) 02/04/2002 Zoster Vaccines (1 of 2) 02/04/2002 Abdominal Aortic Aneurysm (A AA) Screen 10/13/2023 Cholesterol Screening (Lipid Panel) 10/13/2023 Falls Risk Assessment 10/13/2023 Hepatitis C Screening 10/13/2023 Social Influencers of Health Screening 10/13/2023 Depression Screening 09/14/2024 COVID-19 Vaccine (1 - 2024-2 6 season) 2025 Influenza Vaccine (#1) 2025 RSV Immunization Adult [...] age to complete this topic Care Teams Technician Chemical Cleaning Relationship Specialty Start Date End Date Emily Yoder MD [address] [place] [id number] PCP - General 08/11/22
== END 2025-08-29 09:52 | disposition home or self-care (01) ==
LOC: HO.HMCC 09:14
PROVIDERS: PCP Internal Medicine; Visit Provider Internal Medicine
DX: Z00.01 Encounter for general adult medical examination with abnormal findings (principal); E13.9 Other specified diabetes mellitus without complications; E66.01 Morbid (severe) obesity due to excess calories; C61 Malignant neoplasm of prostate; Z68.36 Body mass index [BMI] 36.0-36.9, adult; I10 Essential (primary) hypertension; E78.9 Disorder of lipoprotein metabolism, unspecified; F41.1 Generalized anxiety disorder; F40.231 Fear of injections and transfusions; K21.9 Gastro-esophageal reflux disease without esophagitis; K58.0 Irritable bowel syndrome with diarrhea; Z68.37 Body mass index [BMI] 37.0-37.9, adult; N40.1 Benign prostatic hyperplasia with lower urinary tract symptoms; R35.0 Frequency of micturition; R10.9 Unspecified abdominal pain

== ENCOUNTER → 2025-08-29 09:14 | Outpatient (BNVA) | payer MEDICARE, SELFPAY | PROVIDERS: PCP Internal Medicine; Visit Provider Internal Medicine | DX: Z00.01 Encounter for general adult medical examination with abnormal findings (principal); F41.9 Anxiety disorder, unspecified; E13.9 Other specified diabetes mellitus without complications; I10 Essential (primary) hypertension; F41.1 Generalized anxiety disorder; F40.231 Fear of injections and transfusions; E66.01 Morbid (severe) obesity due to excess calories; K21.9 Gastro-esophageal reflux disease without esophagitis; K58.0 Irritable bowel syndrome with diarrhea; N40.1 Benign prostatic hyperplasia with lower urinary tract symptoms; R35.0 Frequency of micturition; C61 Malignant neoplasm of prostate; R10.9 Unspecified abdominal pain; Z68.36 Body mass index [BMI] 36.0-36.9, adult | CPT/HCPCS: 83036; 99212; 99397 ==